=== PATIENT | female | born 1940 | race Caucasian/White ===

== ENCOUNTER 2024-05-06 15:28 | Emergency (ER) | payer OTHER, SELFPAY ==
[2024-05-06 15:32] VITALS: BP 139/62
--- NOTE | 2024-05-06 16:59 | ED.GENMED ---
History of Present Illness
<Awilda Nazario PA-C - Last Filed: 05/06/24 17:15>
General
Chief Complaint: Fall
Source: patient
Exam Limitations: none
Time Seen by Provider: 05/06/24 15:58
Nursing documentation reviewed up to this point in time: agreed with
Travel History
Have you had any contact with someone who has COVID-19?: No
Do you have any symptoms of coronavirus? Fever > 100 degrees, chills, cough, shortness of breath, sore throat, loss of taste or smell, muscle aches, or headache?: No
History of Present Illness
History of Present Illness:
Patient is an 84-year-old female with history atrial fibrillation on Eliquis presenting to the emergency department for evaluation of head injury. Patient states she had a mechanical trip and fall yesterday evening while trying to step onto a curb
around 4 PM. She tripped and fell backwards striking the back of her head on pavement. Patient says this fall was witnessed by many people. She did not lose conscious. She has been asymptomatic since the fall. She specifically denies any
headache, nausea/vomiting, visual changes, confusion, neck pain, back pain, or unsteady gait. Patient denies any numbness/tingling in lower extremities, bowel/bladder incontinence, or groin paresthesia.
Patient did notice a bruise on the back of her head and her daughter took her to her primary care provider today to have it evaluated. Her PCP sent her to the emergency department for CT scan given that the patient is on Eliquis.
Past History
<Awilda Nazario PA-C - Last Filed: 05/06/24 17:15>
Past History
ED Past Medical History: Arrthythmia and Hypothyroidism
ED Past Surgical History: Gynecological
Social History
Living: alone
Review of Systems
<Awilda Nazario PA-C - Last Filed: 05/06/24 17:15>
Review of Systems
Allergies reviewed?: Yes
All Other Systems: ROS reviewed and negative except as documented in HPI and ROS
Phy Exam
<Awilda Nazario PA-C - Last Filed: 05/06/24 17:15>
Physical Exam
Physical Exam:
Vitals: Patient's vital signs are stable. Afebrile
General: Patient is well appearing, in no apparent distress.
Skin: Warm and dry, no rashes or lesions
Head: Normocephalic. Contusion noted to posterior scalp without any obvious bony deformity.
Eyes: Sclera nonicteric. EOMs intact. No nystagmus. Pupils equal round and reactive to light bilaterally.
Throat: Protecting airway
Neck: Normal ROM, no cervical spine tenderness, no meningismus. No midline spinal tenderness. Mild left lumbar paraspinal tenderness
Cardiac: Regular rate and rhythm, no murmurs.
Pulm: Normal respiratory effort, no wheezes, rales, rhonchi heard on exam.
Abdomen: Abdomen soft. No abdominal tenderness. No bruising noted
Extremities: No evidence of cyanosis or edema. Bilateral upper and lower extremities atraumatic and nontender. Full range of motion in all extremities. Great distal pulses. Sensation fully intact
Neuro: AAOx3. CN II-XII intact. No focal neurologic deficits.
Psychiatric: Normal affect.
Course
<Awilda Nazario PA-C - Last Filed: 05/06/24 17:15>
Orders/Labs/Results
Orders:
Orders
05/06/24 15:36
CT Head W/o Iv Contrast Urgent
Comment:
Reason For Exam: fall, head strike yesterday, on eliquis
Vital Signs
Initial and Last Documented VS:
Initial Vital Signs
Temp Pulse Resp BP Pulse Ox
98.3 F 81 18 139/62 97
05/06/24 15:32 05/06/24 15:32 05/06/24 15:32 05/06/24 15:32 05/06/24 15:32
Last Documented Vital Signs
Temp Pulse Resp BP Pulse Ox
98.3 F 81 18 139/62 97
05/06/24 15:32 05/06/24 15:32 05/06/24 15:32 05/06/24 15:32 05/06/24 15:32
<Isai Pinzno DO - Last Filed: 05/06/24 17:11>
Orders/Labs/Results
Orders:
Orders
05/06/24 15:36
CT Head W/o Iv Contrast Urgent
Comment:
Reason For Exam: fall, head strike yesterday, on eliquis
Vital Signs
Initial and Last Documented VS:
Initial Vital Signs
Temp Pulse Resp BP Pulse Ox
98.3 F 81 18 139/62 97
05/06/24 15:32 05/06/24 15:32 05/06/24 15:32 05/06/24 15:32 05/06/24 15:32
Last Documented Vital Signs
Temp Pulse Resp BP Pulse Ox
98.3 F 81 18 139/62 97
05/06/24 15:32 05/06/24 15:32 05/06/24 15:32 05/06/24 15:32 05/06/24 15:32
<Awilda Nazario PA-C - Last Filed: 05/06/24 17:15>
MDM/Problems Addressed
Differential Diagnosis Includes:
Not limited to: Contusion, concussion, fracture, hematoma, intraparenchymal hemorrhage
MDM/Problems Addressed:
84-year-old female on Eliquis presenting for evaluation of head injury following mechanical fall yesterday. Patient sent by PCP for CT scan given anticoagulation. Patient is completely asymptomatic, although did notice a bruise on the back of her
head. Vital signs are stable. Physical exam as above. Patient is very well-appearing, in no apparent distress. Patient is alert and oriented x 3 with no focal neurologic deficits. She does have a small contusion noted to her posterior scalp
without any obvious depression. CT obtained in triage shows no acute intracranial abnormalities. Patient is stable for discharge with return precautions, primary care follow-up. Instructed patient to apply ice, Tylenol as needed for discomfort.
Patient and patient's daughter comfortable with plan. All questions answered.
Chronic conditions affecting care:
Atrial fibrillation on Eliquis
Acute Exacerbation and/or Progression of Chronic Illness:
N/A
<Awilda Nazario PA-C - Last Filed: 05/06/24 17:15>
*Radiology
Radiology exam reviewed: preliminary read by ED provider and radiology read reviewed
*Pulse Oximetry
Patient hypoxic: no
*EKG
Interpreted by ED Provider?: NA
*Auto Painter Helper Interpretation
Rate: Auto Painter Helper- N/A
*Critical Care Note
Total Time (30-74mins, 75-104mins- exclusive of procedures): Not Applicable
ED Attending Note
<Awilda Nazario PA-C - Last Filed: 05/06/24 17:15>
-
Portions of this chart may have been created with voice recognition software.� Occasional wrong word or��sound alike� substitutions may have occurred due to the inherent limitations of voice recognition software.
<Isai Pinzon DO - Last Filed: 05/06/24 17:11>
ED Attending Note
Patient seen and examined by attending physician: Yes
I performed the substantive portion of visit, reviewed & personally made and approve the management plan that is documented in note by myself or ROB.: Yes
ED Attending Note:
I have seen and evaluated the patient with a kibr-ak-opvy encounter. I have spoken to the advance practicer provider and involved in the medical history, the physical exam, medical decision making.
Evaluation and management service: agree unless noted differently below.
Results interpretation: agree unless noted differently below.
Focused HPI: 84-year-old female presenting with a trip and fall yesterday. She fell backwards and hit her head. She was sent in for a CT head
Physical exam: Sitting in bed comfortably. Small posterior scalp hematoma. No neck tenderness. No evidence of other injury on exam
Medical Decision Making: CT head negative. Patient and daughter feel comfortable going home
Discharge Plan
Departure
Patient Disposition: Home (Routine Discharge)
Date of Disposition: 05/06/24
Time of Disposition: 16:50
Patient with high blood pressure during this ER visit?: No
Condition: Good
Covid-19: Not Applicable
Discharge Problem:
Contusion of head
Instructions: Head Injury in Adults (DC), Contusion (DC)
Prescriptions:
No Action
cefdinir 300 MG capsule
300 mg PO Q12 Qty: 10 1RF
Referrals:
Kyra Marina DO [Family Provider] - Follow up in 5-7 days
Activity Restrictions/Additional Instructions:
RETURN TO THE EMERGENCY DEPARTMENT WITH ANY SEVERE HEADACHE, INTRACTABLE VOMITING, CONFUSION, VISION CHANGES, PERSISTENT DIZZINESS/LIGHTHEADEDNESS, WORSENING IN CURRENT SYMPTOMS, OR ANY CONCERNS
-As discussed�you should apply ice to your head. You can take Tylenol as needed for any discomfort.
-You should follow-up with your primary care provider in about a week to ensure symptoms are improving/for further evaluation. Continue to go your medications as prescribed.
-Monitor your symptoms closely return to the emergency department any acute worsening or new symptoms.
Interventions
Interventions:
*Risk Screen - Suicide Last Done: 05/06/24 15:32
*General Assessment Last Done: 05/06/24 15:32
*Nursing Disposition Last Done: 05/06/24 17:01
ED-Musculoskeletal Assessment Last Done: 05/06/24 16:55
ED- Neurological Assessment Last Done: 05/06/24 16:55
ED-Skin Assessment Last Done: 05/06/24 16:55
Discharge Date and Time
Discharge Date/Time: 05/06/24 17:02
Print Language: TAIWANESE
== END 2024-05-06 17:02 | disposition home or self-care (01) ==
LOC: EMR 15:28
PROVIDERS: EMERGENCY PHYSICIAN Student in an Organized Health Care Education/Training Program; FAMILY PHYSICIAN Family Medicine
DX: S00.93XA Contusion of unspecified part of head, initial encounter (principal); W01.0XXA Fall on same level from slipping, tripping and stumbling without subsequent striking against object, initial encounter; I48.91 Unspecified atrial fibrillation; Z79.01 Long term (current) use of anticoagulants
CPT/HCPCS: 99284; 70450

== ENCOUNTER 2025-06-25 21:13 | Inpatient (IN) | payer OTHER, SELFPAY ==
[2025-06-25] VITALS (7 sets, daily range): BP systolic 104–123; BP diastolic 35–85; BMI 29.8; BMI 25.6
[2025-06-25 18:27] LABS: Hematocrit 30.8 % (37.0-47.0); Hemoglobin 9.8 g/dL (12.0-16.0); Mean Corp Hgb Conc. 31.8 g/dL (33.0-37.0); Mean Corpuscular Volume 87.3 fL (81.0-99.0); Nucleated Red Blood Cells % 0 %; Platelet Count 237 10^3/uL (130-400); Red Cell Dist. Width 16.4 % (11.5-14.5)
[2025-06-25 18:48] LABS: ALT (SGPT) 95 U/L (0-35); AST (SGOT) 63 U/L (14-36); Albumin 3.7 g/dl (3.5-5.0); Alkaline Phosphatase 84 U/L (38-126); Blood Urea Nitrogen 26 mg/dl (7-17); Calcium 8.6 mg/dl (8.4-10.2); Carbon Dioxide 36 mmol/L (22-30); Chloride 94 mmol/L (98-107); Estimated Creatinine Clearance 52 ml/min; Glucose 102 mg/dl (70-99); Magnesium 2.3 mg/dl (1.6-2.3); Potassium 4.1 mmol/L (3.5-5.1); Sodium 134 mmol/L (135-145); Total Protein 6.0 g/dl (6.3-8.2); eGFR > 60.00
--- NOTE | 2025-06-25 18:51 | ED.GENMED ---
History of Present Illness
General
Chief Complaint: Heart Rate Problem
Source: patient and family (Daughter)
Exam Limitations: none
Time Seen by Provider: 06/25/25 18:11
Nursing documentation reviewed up to this point in time: agreed with
History of Present Illness
History of Present Illness:
85-year-old female with a past medical history of atrial fibrillation status post Watchman, CHF, GERD, hypothyroidism who presents to the emergency room with daughter for evaluation of shortness of breath. Patient previously has received most of
her care at [facility] including a recent hospitalization reportedly for A-fib with RVR, congestive heart failure as well as pneumonia. During that hospitalization she reportedly had a moderate pleural effusion requiring thoracentesis prior
to discharge. She was discharged home about a week ago has completed her antibiotics for pneumonia. She was discharged on 2 L nasal cannula. She has been on daily Lasix and they also started her on metolazone. Daughter has been checking daily
weights and patient's weight has actually been trending downwards but patient has had increasing shortness of breath as well as increasing swelling in the legs. She has also had daily vital signs and daughter says that heart rate has been erratic
and often times very high in the 110s to 120s. Apparently patient discussed the symptoms with her sap project manager (Dr. Craig) who recommended that she go to the emergency room�daughter and patient are both very dissatisfied with the care at [facility]
and so they decided to come to [facility] instead.
Past History
Past History
ED Past Medical History: Arrthythmia and Hypothyroidism
ED Past Surgical History: Gynecological
Social History
Living: alone
Review of Systems
Review of Systems
All Other Systems: ROS reviewed and negative except as documented in HPI and ROS
Constitutional: Reports fatigue; Denies fever or weight gain
Respiratory: Reports cough and trouble breathing
Cardiac: Reports palpitations; Denies chest pain
ABD/GI: Denies abdominal pain, nausea or vomiting
: Denies flank pain
Musculoskeletal: Reports edema; Denies neck pain or back pain
Neurological: Denies headache
Phy Exam
Physical Exam
Physical Exam:
General: Awake, alert, mild respiratory distress
Head: Normocephalic, atraumatic
Eyes: Conjunctiva normal, sclera anicteric
Throat: Airway intact, handling secretions
Neck: Trachea midline, slight JVD noted
Lungs: Breath sounds diminished at the right lung base, scattered Rales bilaterally; patient has tachypnea, saturating appropriately on 2 L nasal cannula, no retractions
Heart: Tachycardia with irregularly irregular rhythm, faint systolic murmur noted
Abd: Soft, non distended, nontender
Neuro: No gross deficits
Extremities: +2 pitting edema in the legs bilaterally, extremities are warm and well-perfused
Scores
Heart Failure Risk
Heart Failure Risk Score: Yes
History of Stroke or TIA: No
History of intubation for respiratory distress: No
Heart rate on ED arrival >/= 110: Yes
SaO2 <90% on arrival on room air: Yes
HR >/=110 during 3min walk test (or too ill to perform test): Yes
ECG has acute ischemic changes: No
Urea >/=12mmol/L (BUN 33.6mg/dL): No
Serum CO2>/=35mmol/L: Yes
Troponin I or T elevated to ND Level (0.4mg/dL): No
NT-proBNP >/=5,000ng/L (5,000pg/ml): Yes
HF Risk Score: 6
Admission Status: VERY HIGH RISK 55.3% Consider admission to hospital
Heart Score for Chest Pain Patients
STEMI patient?: Not applicable
Withdrawal Assessment of Alcohol
Withdrawal Assessment Completed?: Not applicable
Course
Orders/Labs/Results
Orders:
Orders
06/25/25 18:11
Electrocardiogram (*1) Urgent
Reason for Study: Shortness of Breath
EKG- Treatment ONCE
06/25/25 18:16
Complete Blood Count/With Diff Urgent
Comprehensive Metabolic Panel Urgent
Magnesium Urgent
06/25/25 18:22
CR Chest - 2 Views Urgent
Comment:
Reason For Exam: sob
06/25/25 18:23
Metoprolol [Lopressor] 5 mg IV NOW STA
06/25/25 19:07
NT-proBNP Urgent
Troponin I Urgent
06/25/25 19:21
Furosemide [Lasix] 40 mg IV NOW STA
06/25/25 20:08
Admit/Transfer Patient As Directed
Co-Sign Provider:
Level of Care: Inpatient admission
Assign to:: Telemetry
Physician / Group: Nasir
Diagnosis: A-Fib, CHF
Reason for Telemetry: Arrhythmia
Date to Stop Telemetry: 06/28/25
Time to Stop Telemetry: 11:00
Reason for Hospitalization: A-Fib, CHF
Expected length of stay greater than two midnights?: Yes
ELOS- Estimated Length of Stay in days: 3
I certify the patient meets the requirements for IP care: Yes
06/25/25 20:09
Code Status As Directed
Resuscitation Status: Do not resuscitate
Reached after discussion with pt or family/Healthcare POA: Yes
PRN Pain Medication Management As Directed
May give lesser potent ordered pain med per pt: Yes
preference::
Protocol:: Medication orders for pain may be administered in a
manner that supports deferring to patient preference
when the pt is:
- Requesting an ordered lesser potent pain medication.
Least to most potent pain medications are defined
as: acetaminophen < NSAID < tramadol < opioids
(morphine, oxycodone, hydromorphone).
- Requesting a lesser dose of the same medication IF
ORDERED.
- Requesting a less intrusive route of administration
if both routes are prescribed by the provider (PO <
IV).
06/25/25 20:10
DNR Bracelet Application ONCE
06/25/25 20:18
Urinalysis Reflex To Culture Urgent
Date Specimen was Collected: 06/25/25
Time Specimen was Collected: 20:17
06/28/25 11:00
DC Protocol for Telemetry ONCE
Abnormal Lab Results
06/25/25
18:16
RBC 3.53 L 10^6/uL
(4.20-5.40)
Hgb 9.8 L g/dL
(12.0-16.0)
Hct 30.8 L %
(37.0-47.0)
MCHC 31.8 L g/dL
(33.0-37.0)
RDW 16.4 H %
(11.5-14.5)
MPV 11.0 H fL
(7.4-10.4)
Lymphocytes % 18.3 L %
(20.5-51.1)
Sodium 134 L mmol/L
(135-145)
Chloride 94 L mmol/L
(98-107)
Carbon Dioxide 36 H mmol/L
(22-30)
BUN 26 H mg/dl
(7-17)
Glucose 102 H mg/dl
(70-99)
AST 63 H U/L
(14-36)
ALT 95 H U/L
(0-35)
Total Protein 6.0 L g/dl
(6.3-8.2)
06/25/25 18:16
06/25/25 18:16
Vital Signs
Initial and Last Documented VS:
Initial Vital Signs
Temp Pulse Resp BP Pulse Ox
36.4 C 119 25 123/85 98
06/25/25 18:16 06/25/25 18:16 06/25/25 18:16 06/25/25 18:16 06/25/25 18:16
Last Documented Vital Signs
Temp Pulse Resp BP Pulse Ox
36.4 C 108 22 106/85 98
06/25/25 18:16 06/25/25 19:38 06/25/25 18:30 06/25/25 19:38 06/25/25 18:52
MDM/Problems Addressed
Differential Diagnosis Includes:
Symptomatic A-fib, CHF, recurrent effusion, pneumonia, anemia
MDM/Problems Addressed:
85-year-old female who had a recent complicated hospitalization at [facility] for pneumonia with pleural effusion requiring thoracentesis, CHF and A-fib with RVR presents to the emergency room at [facility] today for evaluation of shortness of breath
and tachycardia. She is tachycardic and tachypneic here, saturating appropriately on 2 L which is her baseline since discharge from the hospital; she is afebrile normotensive. Physical exam as above. Her EKG shows A-fib with RVR heart rate 110s
to 120s here. She has a left bundle branch block�no priors available for comparison. Plan to place an IV check labs including CBC and CMP. Check troponin and proBNP. Will check chest x-ray. IV Lopressor for rate control. Reassess after the
above�anticipate admission.
Labs reviewed: CBC shows mild anemia�new compared to 2021 but no more recent baseline available for comparison. CMP shows marginal transaminitis likely in the setting of CHF/congestion. Chest x-ray reviewed by me shows right pleural effusion with
some pulmonary vascular congestion. Low suspicion for pneumonia without fever or leukocytosis. Suspect effusion related to acute CHF exacerbation in the setting of poorly controlled A-fib with RVR. Heart rate improving after Lopressor we will
continue with rate control. IV Lasix. Admit for continued management. Discussed case with hospitalist.
Chronic conditions affecting care:
Atrial fibrillation, CHF
Acute Exacerbation and/or Progression of Chronic Illness:
Acute A-fib with RVR managed as above
Acute CHF managed as above
*Radiology
Radiology exam reviewed: preliminary read by ED provider and radiology read reviewed
*Pulse Oximetry
SaO2: 98
Nasal Cannula flow liters per minute: 2
Patient hypoxic: no (98% on normal 2 L of oxygen)
*EKG
Interpreted by ED Provider?: Yes
Heart Rate: 116
Rate: tachycardiac
Rhythm: a-fib
Cummings: left axis deviation
Interval: normal interval
QRS Pattern: left bundle branch block
Ischemia: non-specific ST changes
*Critical Care Note
Total Time (30-74mins, 75-104mins- exclusive of procedures): 30
comment:
Critical care statement: A total of 30 minutes of critical care time was provided for this patient. This includes management of unstable vital signs, evaluation of the patient at bedside, frequent reassessment, discussion with
consultants/hospitalist, and review of pertinent medical records. This time was separate from time utilized to perform any aforementioned documented procedures
Data Reviewed
Review of Other/Old Records Reveals: Labs
Source: patient, family and ambulance crew
Patient Management
Discussion with other providers: Hospitalist (Discussed with hospitalist)
Escalation/DeEscalation of care consider admission/obs:
Admission indicated
ED Attending Note
-
Portions of this chart may have been created with voice recognition software.� Occasional wrong word or��sound alike� substitutions may have occurred due to the inherent limitations of voice recognition software.
Discharge Plan
Departure
Patient Disposition: Admit
Date of Disposition: 06/25/25
Time of Disposition: 19:22
Admit to doctor: Nasir
Presentation/result/management discussed w/ accepting MD/DO: Hospitalist
Discharge Problem:
Atrial fibrillation with RVR, CHF exacerbation, Pleural effusion
Prescriptions:
No Action
furosemide [Lasix] 40 mg Tablet
40 mg PO DAILY
trazodone 50 mg Tablet
50 mg PO HSPRN PRN (Reason: sleep)
metoprolol succinate [Toprol XL] 50 mg Tablet Extended Release 24 Hr
50 mg PO DAILY
sertraline 100 mg Tablet
100 mg PO DAILY
Theragen Tablet
1 tab PO DAILY
aspirin 81 mg Tablet,Delayed Release (Dr/Ec)
81 mg PO DAILY
calcium carbonate [Calcium 600] 600 mg calcium (1,500 mg) Tablet
600 mg PO DAILY
pantoprazole [Protonix] 40 mg Tablet,Delayed Release (Dr/Ec)
40 mg PO BID
levothyroxine [Synthroid] 150 mcg Tablet
150 mcg PO DAILY
alum-mag hydroxide-simeth [Maalox] 200-200-20 mg/5 mL Suspension
15 ml PO AC
PreserVision AREDS 2,148 mcg-113 mg-45 mg-17.4mg Tablet
1 tab PO BID
Referrals:
Kyra Marina DO [Family Provider, Family Practice]
Interventions
Interventions:
*Risk Screen - Suicide Last Done: 06/25/25 18:16
*General Assessment Last Done: 06/25/25 18:16
*Neglect/Abuse Screening Last Done: 06/25/25 18:16
*ED- Fall Risk Assessment Last Done: 06/25/25 18:16
*ED COVID-19 Vaccine History Last Done: 06/25/25 18:16
ED- Cardiac Assessment Last Done: 06/25/25 18:16
ED- Pulmonary Assessment Last Done: 06/25/25 18:16
Discharge Date and Time
Print Language: PORTUGUESE
[2025-06-25] MEDS: LOPRESSOR 5 MG IV ×2 (19:02→23:16)
[2025-06-25] MEDS: LASIX 40 MG IV (19:38)
[2025-06-25 19:45] LABS: Troponin I 0.012 ng/ml
--- NOTE | 2025-06-25 20:12 | HPS.HSE ---
Family Physician
-
Family Physician: Kyra Marina, DO
Chief Complaint
-
Weakness
History of Present Illness
Patient is an 85y F with PMH significant for A-Fib and CHF who presents to ED complaining of weakness and fatigue. History obtained from patient and her daughter at the bedside. Patient was hospitalized for 13 days at [facility] and
treated for A-Fib with RVR, CHF, pneumonia and pleural effusion. She underwent cardioversion, diuresis, 5 days of IV abx and R thoracentesis during her stay. Her primary Elevator Starter is Dr. Craig from [facility]. Patient was discharged to home on
Tuesday 06/19. Since her return home she has been very weak. Patient fell twice at home - once striking her head on some furniture. She denies LOC. She denies chest pain. She complains of shortness of breath with activity / exertion. She has been
monitoring her weight at home and took a metolazone yesterday for a weight of 152 (was 150 this AM).
With weakness, falls, LE edema and exertional dyspnea - patient contacted her Elevator Starter and was advised to present to the ED.
Family decided to bring patient to for second opinion.
Medical History
Past Medical History
Past Medical History: Reports Other
Additional Past Medical History:
Persistent / Permanent Atrial Fibrillation
Chronic HF - Unknown Type
Hypothyroidism
GERD
Past Surgical History: Reports Other
Additional Past Surgical History:
Watchman Device
Hysterectomy
Cardioversion
Thoracentesis
Social History
Tobacco: Non-smoker
Alcohol: None
Drug: None
Family History
Family History: Not pertinent
Allergies / Home Medications
Allergies reflects when Allergies were last updated in [facility].
Home Medications with original date entered in [facility]
Allergy/Medication List:
Allergies
Allergy/AdvReac Type Severity Reaction Status Date / Time
No Known Allergies Allergy Verified 05/06/24 15:32
Home Medications
aluminum-mag hydroxide-simethicone 200 mg-200 mg-20 mg/5 mL oral susp 15 ml PO AC 06/25/25
aspirin 81 mg tablet,delayed release 81 mg PO DAILY 06/25/25
calcium carbonate (Calcium 600) 600 mg PO DAILY 06/25/25
furosemide 40 mg tablet (Lasix) 40 mg PO DAILY 06/25/25
levothyroxine 150 mcg tablet (Synthroid) 150 mcg PO DAILY 06/25/25
metoprolol succinate 50 mg tablet,extended release 24 hr (Toprol XL) 50 mg PO DAILY 06/25/25
pantoprazole 40 mg tablet,delayed release (Protonix) 40 mg PO BID 06/25/25
sertraline 100 mg tablet 100 mg PO DAILY 06/25/25
therapeutic multivitamin 1 tab PO DAILY 06/25/25
trazodone 50 mg tablet 50 mg PO HSPRN PRN sleep 06/25/25
vitamins A,C,S-jist-blhvzv 2,148 mcg-113 mg-45 mg-17.4 mg tablet (PreserVision AREDS) 1 tab PO BID 06/25/25
Review of Systems
-
History Source: Patient
A 12 point ROS was completed and negative except as noted: Yes
Constitutional: Reports Weight Gain and Fatigue; Denies Fever or Chills
EENT: Denies Sore Throat
Respiratory: Reports Trouble Breathing; Denies Cough
Cardiac: Denies Chest Pain or Palpitations
Abdomen/GI: Reports Abdominal Pain; Denies Nausea, Vomiting, Diarrhea, Bloody Stools or Black Stools
: Denies Dysuria or Flank Pain
Musculoskeletal: Reports Edema; Denies Joint Pain
Neurological: Denies Dizzy or Headache
Psych: Denies Depression or Anxiety
Physical Exam
Vital Signs
Vital Signs
Temp Pulse Resp BP Pulse Ox
97.6 F 108 22 106/85 98
06/25/25 18:16 06/25/25 19:38 06/25/25 18:30 06/25/25 19:38 06/25/25 18:52
Physical Exam
General: Other (85y F in mild distress due to dyspnea.)
HEENT: Moist mucous membranes, PERRLA and Other (Pos JVD. L occipital hematoma.)
Respiratory: Other (Decreased BS at R base with dullness to percussion. Bibasilar rales.)
Cardiac: S1/S2, Irregular Rhythm and Tachycardia
GI: Soft, Non Distended, Normal Bowel Sounds and Other (Mild lower abdominal tenderness without rebound / guarding. Pos BS.)
Musculoskeletal: No Clubbing, No Cyanosis and Other (2+ pitting edema b/l LEs.)
Skin: Other (Ecchymosis R lower leg.)
Neuro: AO x 3 and Nonfocal/grossly intact
Laboratory Results
-
06/25/25 18:16
06/25/25 18:16
Laboratory Results
Total Bilirubin 0.9 mg/dl (0.2-1.3) 06/25/25 18:16
AST 63 U/L (14-36) H 06/25/25 18:16
ALT 95 U/L (0-35) H 06/25/25 18:16
Alkaline Phosphatase 84 U/L (38-126) 06/25/25 18:16
Troponin I 0.012 ng/ml 06/25/25 19:07
Impression/Plan
-
A/P: Patient is an 85y F with PMH significant for A-Fib, CHF and hypothyroidism who presents to ED complaining of weakness and exertional dyspnea.
Atrial Fibrillation with Rapid Ventricular Response
- Admit for further evaluation and treatment.
- ? type of A-Fib.
- s/p cardioversion during recent [facility] hospitalization - but had recurrent A-Fib even prior to discharge.
- Has Watchman in place for stroke risk reduction.
- Was on amiodarone which was discontinued at [facility].
- IV Lopressor given in the ED. Continue q6 with holding parameters for now.
- Obtain records from recent hospitalization.
- Local Cardiology evaluation for additional recommendations.
Acute on Chronic HF - Unknown Type
Abnormal LFTs
- LE edema, DEVI and elevated ProBNP on initial assessment. Pos rales and pleural effusion.
- IV Lasix BID for now and follow I/Os, daily weights, etc.
- Control A-Fib as noted above - ? benefit to rhythm-control strategy if possible.
- Obtain recent records from [facility] for review - update Echo if not done recently (which it likely was).
- Suspect that mildly abnormal LFTs are due to passive hepatic congestion.
- Follow for clinical improvement.
Pleural Effusion
- R pleural effusion by exam and imaging. s/p thoracentesis at [facility] last week.
- Obtain records for fluid analysis, culture data, etc.
- Diuresis as noted above.
- Consider repeat thoracentesis if needed.
- Was also treated for pneumonia during recent hospitalization, but no evidence of infectious process at present.
Normocytic Anemia
GERD
- Hgb = 9.8. Prior baseline 12 several years ago. No noted blood loss.
- Recent complaint of lower abdominal discomfort - unclear etiology.
- Follow H&H for changes.
- Check stool for blood, iron studies, etc.
- Continue BID PPI for now.
Hypothyroidism
- Continue current T4 replacement for now.
- Update TFTs and adjust dose if needed.
Anxiety / Depression / Insomnia
- Stable. Continue sertraline and PRN trazodone.
DVT Prophylaxis: Lovenox
Code Status: DNR
[2025-06-25 21:05] LABS: Urine Character Clear (Clear)
[2025-06-25 22:33] LABS: Iron 38 ug/dl (37-170)
[2025-06-25 22:42] LABS: Total Iron Binding Capacity 393 ug/dl (265-497)
[2025-06-25 22:45] LABS: Troponin I 0.012 ng/ml
[2025-06-26] VITALS (12 sets, daily range): BP systolic 91–133; BP diastolic 62–90; BMI 25.3
[2025-06-26 00:24] LABS: Ferritin 46.9 ng/ml (11.1-264.0)
[2025-06-26 03:48] LABS: Hematocrit 30.4 % (37.0-47.0); Hemoglobin 9.6 g/dL (12.0-16.0); Mean Corp Hgb Conc. 31.6 g/dL (33.0-37.0); Mean Corpuscular Volume 86.6 fL (81.0-99.0); Platelet Count 213 10^3/uL (130-400); Red Cell Dist. Width 16.3 % (11.5-14.5)
[2025-06-26] MEDS: LASIX 40 MG IV ×3 (04:08→16:41)
[2025-06-26 04:16] LABS: Blood Urea Nitrogen 26 mg/dl (7-17); Calcium 8.5 mg/dl (8.4-10.2); Carbon Dioxide 38 mmol/L (22-30); Chloride 95 mmol/L (98-107); Estimated Creatinine Clearance 44 ml/min; Glucose 106 mg/dl (70-99); HDL Cholesterol 40 mg/dl; LDL Cholesterol, Calculated 64 mg/dl; Potassium 3.7 mmol/L (3.5-5.1); Sodium 135 mmol/L (135-145); Very Low Density Lipoprotein 21 mg/dl (0-30); eGFR > 60.00
[2025-06-26 04:28] LABS: Troponin I 0.013 ng/ml
[2025-06-26] MEDS: LOPRESSOR 5 MG IV (05:37)
[2025-06-26] MEDS: SYNTHROID 150 MCG PO (05:37)
[2025-06-26] MEDS: PROTONIX 40 MG PO ×2 (07:20→19:46)
[2025-06-26] MEDS: ASPIR LOW (ENTERIC COATED) 81 MG PO (07:20)
[2025-06-26] MEDS: ZOLOFT 100 MG PO (07:20)
[2025-06-26] MEDS: FLUSH (NSS) 1 FLUSH IV (07:20)
--- NOTE | 2025-06-26 09:20 | W.PN.HOSP.TC ---
Today's Communication/Plan
-
see PN
Unable to reach daughter over the phone
Assessment / Plan
Assessment / Plan
85yo F with PMHx of Afib s/p Watchman due to intorrenace of anticoagulation, CHF, hypothyroidism, GERD, insomnia recent admission to [facility] with abdominal pain, later developed Afib RVR, had CV, had thoracentesis for R pleural
effusionthen developed pneumonia and finally was d/c 1 week before admission to . Patient was haing recurrence of Afib with RVR and her carpet cutter advised her to come to ED. Patient was discharged on 2L home O2 from her previous hospitalization
A/P:
#Subacute respiratory insufficiency
#Afib with RVR
#acute on chronic CHF, unspecified
#R pleural effusion with atelectasis
s/p watchman
Lasix, daily weight, follow electrolytes, Cr
Cardiology consult
Echo and telemetry
Acapella
COnt O2
Obtain records from [place] to eval pleural fluid analysis, imaging andafib mgmt
#Constipation
laxatives
#Transaminitis
minimal
2/2 CHF?
CPK WNL
Check hepatitis panel
#Hypothyroidism
Elevated TSH with also high FT4 - repeat TFT in 2-3 days, then in 3-4 weeks to determine if Synthroid has to be decreased (due to concern for oversupplementation even with elevated TSH, but with RVR) - as discussed with business objects analyst
#Anxiety
#ASCVD
#Insomnia
Cont home meds
DVT ppx lovenox
DNR/DNI
I have spent at least 59min reviewing chart, test results, communicating with consultnats and direct patient care
Anticipated Discharge: > 48 hours
Subjective/Interval History
-
Date of Service: June 26, 2025
Objective Data
-
Labs:
Laboratory Results
06/26/25
03:39
WBC 5.5
Hgb 9.6 L
Hct 30.4 L
Plt Count 213
Sodium 135
Potassium 3.7
Chloride 95 L
Carbon Dioxide 38 H
BUN 26 H
Creatinine 0.8
Glucose 106 H
Calcium 8.5
Vital Signs:
Vital Signs
Temp Pulse Resp BP Pulse Ox
97.9 F 118 18 123/82 95
06/26/25 07:10 06/26/25 07:20 06/26/25 07:10 06/26/25 07:20 06/26/25 07:25
I&O
06/25/25 06/26/25 06/27/25
06:59 06:59 06:59
Output Total 625 / 625
Balance -625 / -625
Review of Systems
-
History Source: Patient
All other systems: Reviewed and negative
Constitutional: Reports Fatigue
Cardiac: Reports Palpitations
Physical Exam
-
General: No Apparent Distress
HEENT: Normocephalic
Cardiac: Irregular Rhythm and Tachycardic
GI: Soft, Nontender and Nondistended
Musculoskeletal: No Clubbing, No Cyanosis, Edema, Right Lower Extrem and Edema, Left Lower Extrem
Neuro: Awake, Alert, Oriented and AO x 3
Psych: Calm
[2025-06-26 09:41] LABS: Glycohemoglobin (HgbA1c) 5.9 % (4.0-5.6)
[2025-06-26] MEDS: TOPROL XL 50 MG PO (09:53)
--- NOTE | 2025-06-26 09:59 | CON.CAR ---
Addendum entered and electronically signed by Mamie Camacho MD 06/26/25 14:27:
I saw and examined the patient.
The Welt Slasher's note was reviewed and I agree with the note.
Comment:
Patient was on the commode. Lower extremity edema, crackles and increased heart rates in atrial fibrillation noted. Her daughter is at the bedside.
She was recently discharged from [facility] for similar admission with atrial fibrillation and heart failure. She also underwent a thoracentesis by report at that time and records reviewed. Amiodarone was discontinued given she was having some
nausea and abd symptoms during hospital admission that may or may not have been attributed to amiodarone.
She now presents with heart failure decompensation with newly reduced left ventricular ejection fraction in the setting of rapid atrial fibrillation. She had a recent fall last Sunday and continues to heal. She does fall. She has a watchman in
place and is not on oral anticoagulation.
I did have a long discussion with the patient and her daughter at the bedside. My physician podiatrist assistant also discussed on the phone with her other daughter plans.
Plan at this time:
Heart failure with newly reduced left ventricular ejection fraction with acute volume overload (previously heart failure with preserved ejection fraction)
- Continue IV diuretic
- Rate control atrial fibrillation , Toprol-XL dose increased
- Look into the cost of SGLT2 inhibitor
- Recently had [place] losartan discontinued because of hypotension and hyperkalemia continue to reassess. Given hyperkalemia at this time would avoid MRA. Continue to reassess.
Paroxysmal now persistent atrial fibrillation with rapid rates (recent cardioversion and recurred shortly thereafter)
- Previously was on amiodarone and there was a question of abdominal symptoms but she is willing to try again. Currently LFTs are mildly elevated.
- Reassess LFTs after diuresis. If improved would start amiodarone with an eye towards future rhythm control. If not could consider dofetilide.
- Watchman (history of GI bleeding) in place however if plan is for cardioversion in the future would need short-term anticoagulation given risk. Would want to wait until healed from recent fall.
Hypothyroidism
- Will need to be followed closely if amiodarone is resumed. May need increased dose of thyroid medication.
Chronic left bundle branch block noted
Original Note:
Consultation
Consultation Request
Date/Time Consultation Performed: 06/26/25
Requesting Provider: Dr. Best
Performing Provider: Juhi Buck PA-C for Dr. Mamie Camacho
Reason for Consultation: afib, CHF
Medical History
-
Chief Complaint: SOB
History of Present Illness:
Patient is an 85 yo F with PMH of paroxysmal atrial fibrillation also with history of GI bleeding, falls, and history of headaches on anticoagulation status post Watchman with admission to [facility] 06/07 - 06/19/2025. She had
initially presented to [facility] with epigastric pain and hematuria. Then was found to be in rapid A-fib. She underwent cardioversion which was initially successful, however then recurred. Amio was stopped during this admission due to 'concerns
for long-term toxicity', But further details of this unclear. She was also diuresed for heart failure and underwent right thoracentesis which was reportedly transudative. She was also treated for pneumonia. She was discharged to home on
supplemental oxygen. Family reports she had been doing poorly since discharge and felt she was 'discharged too early'. On Friday 06/22, she tripped over her oxygen tubing and fell and has right knee bruising. She has been corresponding with her
manager of sales and outpatient diuretic dosing has been escalating without significant improvement in symptoms. She was then referred back to the ER and family brought her to [place], as this is where they will come for their care. Noted to have
proBNP of 13,200. In rapid atrial fibrillation on arrival.
PMH:
Admission to [facility] 05/2025 for CHF s/p R thora (transudative), afib s/p CV with recurrence
Paroxysmal atrial fibrillation
Prior amiodarone use, stopped 05/2025 admission due to 'concerns for fci toxicity'
s/p Watchman 07/2024
History of GI bleeding
Chronic HFpEF
HTN
Chronic LBBB
Hypothyroidism
GERD
Past Medical History
Past Medical History: Other (in HPI)
Social History
Tobacco: Non-Smoker
Alcohol: None
Living: Alone
Employment: Retired
Family History
Family History: Reviewed & Not Pertinent
Allergies / Home Medications
Allergy/AdvReac Type Severity Reaction Status Date / Time
No Known Allergies Allergy Verified 05/06/24 15:32
�Medication �Instructions �Recorded �Confirmed �Type
aluminum-mag hydroxide-simethicone 15 ml PO AC Gastrointestinal Issue 06/25/25 06/25/25 History
200 mg-200 mg-20 mg/5 mL oral susp
aspirin 81 mg tablet,delayed 81 mg PO DAILY Blood Clot 06/25/25 06/25/25 History
release Prevention/Tx
calcium carbonate (Calcium 600) 600 mg PO DAILY Supplement 06/25/25 06/25/25 History
furosemide 40 mg tablet (Lasix) 40 mg PO DAILY Fluid 06/25/25 06/25/25 History
Retention/Swelling
levothyroxine 150 mcg tablet 150 mcg PO DAILY Thyroid 06/25/25 06/25/25 History
(Synthroid)
metoprolol succinate 50 mg 50 mg PO DAILY Blood Pressure 06/25/25 06/25/25 History
tablet,extended release 24 hr
(Toprol XL)
pantoprazole 40 mg tablet,delayed 40 mg PO BID Gastrointestinal Issue 06/25/25 06/25/25 History
release (Protonix)
sertraline 100 mg tablet 100 mg PO DAILY Depression 06/25/25 06/25/25 History
therapeutic multivitamin 1 tab PO DAILY Supplement 06/25/25 06/25/25 History
trazodone 50 mg tablet 50 mg PO HSPRN PRN sleep 06/25/25 06/25/25 History
vitamins A,C,U-unhc-dkysxe 2,148 1 tab PO BID Supplement 06/25/25 06/25/25 History
mcg-113 mg-45 mg-17.4 mg tablet
(PreserVision AREDS)
Review of Systems
-
History Source: Patient and Family
All other systems: Negative unless noted
Physical Exam
Vital Signs
Temp Pulse Resp BP Pulse Ox
97.9 F 113 18 106/76 95
06/26/25 07:10 06/26/25 09:53 06/26/25 07:10 06/26/25 09:53 06/26/25 07:25
Lab Results
06/26/25 03:39
06/26/25 03:39
Troponin I Cancelled 06/26/25 09:47
Alg-F-Qgayasebtig Pept 36315 pg/ml 06/25/25 19:07
Physical Exam
General: Other (frail female, on supp O2, some conversational dyspnea)
HEENT: Normocephalic, Anicteric and Moist Mucous Membranes
Respiratory: Crackles
Cardiac: S1/S2 and Irregular Rhythm
GI: Soft, Non Tender, Non Distended and Normal Bowel Sounds
Musculoskeletal: No Clubbing, No Cyanosis and No Edema
Skin: Warm, Dry and Other (R knee with ecchymoses)
Neuro: AO x 3
Impression / Plan
-
Primary Flag Car Driver: Dr. Craig of [facility] however patient's daughter discussing transitioning care to [facility]
Assessment:
Presentation with SOB
Acute HFrEF
Cardiomyopathy, new, EF 25-30%
Paroxysmal atrial fibrillation, now with RVR
Fall 06/22/25 with R knee ecchymoses
Admission to [facility] 05/2025 for CHF s/p R thora (transudative), afib s/p CV with recurrence
Prior amiodarone use, stopped 05/2025 admission due to 'concerns for terminologist toxicity'
s/p Watchman 07/2024
History of GI bleeding
Chronic HFpEF
HTN
Chronic LBBB
Hypothyroidism, with elevated TFTs
GERD
Anemia
Mild transaminitis
DNR code status
ECHO 06/26/25: EF 26%, mild to moderate LVH, aortic sclerosis, moderate to severe MR, mild TR, PAP 26 mmHg, small pericardial effusion seen
Plan:
-Patient with recent admission to [facility], now presents to [facility] due to worsening SOB, fatigue since discharge.
-in rapid afib on review of tele. suspect is not tolerating well. increase po toprol to 50mg BID. will consider restarting amiodarone vs trialing on tikosyn for rhythm control. will need to follow LFTs/TFTs if plan for amio.
-she is s/p watchman. she is on asa only as OP. she has history of GI bleeding, falls, and headaches on OAC in past. she had a fall 06/22/25 with R knee ecchymoses. she had also initially presented to [facility] due to hematuria, UA 06/25 with no occult
blood in urine sample. hgb 9.6
-echo this admission with EF 26%, new. prior echo from [facility] with EF 60% and mod MR per notes. GDMT of CM as BP allows. she had previously been on losartan however this [facility] due to hyperkalemia and hypotension. results
discussed with patient's daughter Becca via telephone today
-proBNP 17827. continue diuresis with IV lasix 40mg BID. was on po lasix 40mg daily prior to admission, however she was not on daily diuretic prior to 05/2025 admission to [facility]
-obtained and reviewed records from [facility] admission and cardiology office notes
-will move patient to IVU
-wean supp O2 as able
-may need to consider for SHERRILL/CV however would attempt to load with AAD prior to increase chance of success. of note, patient was cardioverted during [facility] admission with initial success however then reverted as amio was stopped.
-eventual consideration for ablation candidacy
-she was living alone prior to admission
-d/w patient's daughter via telephone for 18:53
-d/w hospitalist via TT
Data Reviewed
-
EKG: Tracing Personally Visualized and interpreted
Radiology: Report Reviewed by me
Medical Tests (Nuc Med, Echo etc): Report Reviewed by me, Discussed with Physician and Discussed with Family
Labs: Labs Reviewed by me
Old Records: Requested and Reviewed
--- NOTE | 2025-06-26 13:51 | TRANSFER ---
Order received to tx pt to IVU. Report given to ALBINO Woodard. Pt remains Afib on manager life insurance. HR 90s- 110s. Pt denies pain. Daughter at bedside. Plan of care ongoing.
[2025-06-26 14:10] LABS: Hepatitis B Surface Antigen Negative (Negative)
[2025-06-26 14:29] LABS: Hepatitis C Antibody Negative (Negative)
--- NOTE | 2025-06-26 15:01 | CM ---
Pricing on Farxiga 10mg through the [employer] [facility] is a Tier 4 which is 45% of cost.
Jardiance is a Tier 3 which is $47 for a 30 days.
I will place a free 30 day coupon in the patient red discharge folder.
--- NOTE | 2025-06-26 15:55 | CM ---
Chart reviewed. Patient was recently discharged from [facility] with [facility]. Patient's daughter has been staying with the patient, but she lives alone in a apartment, 3rd floor, elevator access, ambulates with a RW, wears Home O2 but
doesn't know the name of the supplier. Patient's daughter said her mom is very weak and she thinks she will need rehab. PT evaluation was ordered. Plan is for the patient to return home with [facility] vs Rehab. CM to assess
--- NOTE | 2025-06-26 16:09 | PTCARENOTE ---
Received pt from the 4th floor. VSS. Discussed plan of care w/ pt and pt's daughter. Will monitor.
[2025-06-26] MEDS: LOVENOX 40 MG SC (17:54)
[2025-06-26] MEDS: TOPROL XL PO (21:35)
--- NOTE | 2025-06-26 21:37 | PTCARENOTE ---
Received pt at change of shift OOB in chair. Afib on tele, HR 100. pt denies any CP or SOB. Satting 98% on 2L. BP 95/62, rechecked an hour later and is 100/72. Sonya Bowens NP made aware. Instructed RN to hold Toprol Xl. Fall risk precautions
maintained, bed alarm on and audible. Educated pt to call RN for assistance ambulating. Call matthews within reach.
[2025-06-27] VITALS (11 sets, daily range): BP systolic 71–124; BP diastolic 60–90; PULSE 96; O2SAT 95; BMI 24.7
[2025-06-27 04:47] LABS: Hematocrit 30.3 % (37.0-47.0); Hemoglobin 9.6 g/dL (12.0-16.0); Mean Corp Hgb Conc. 31.7 g/dL (33.0-37.0); Mean Corpuscular Volume 87.3 fL (81.0-99.0); Nucleated Red Blood Cells % 0 %; Platelet Count 201 10^3/uL (130-400); Red Cell Dist. Width 16.0 % (11.5-14.5)
[2025-06-27 05:07] LABS: ALT (SGPT) 91 U/L (0-35); AST (SGOT) 61 U/L (14-36); Albumin 3.4 g/dl (3.5-5.0); Alkaline Phosphatase 72 U/L (38-126); Blood Urea Nitrogen 25 mg/dl (7-17); Calcium 8.4 mg/dl (8.4-10.2); Carbon Dioxide 38 mmol/L (22-30); Chloride 94 mmol/L (98-107); Estimated Creatinine Clearance 44 ml/min; Glucose 97 mg/dl (70-99); Magnesium 2.1 mg/dl (1.6-2.3); Potassium 3.8 mmol/L (3.5-5.1); Sodium 135 mmol/L (135-145); Total Protein 5.7 g/dl (6.3-8.2); eGFR > 60.00
[2025-06-27] MEDS: SYNTHROID 150 MCG PO (06:35)
[2025-06-27] MEDS: PROTONIX 40 MG PO ×2 (09:41→19:40)
[2025-06-27] MEDS: ZOLOFT 100 MG PO (09:41)
[2025-06-27] MEDS: ASPIR LOW (ENTERIC COATED) 81 MG PO (09:41)
[2025-06-27] MEDS: LASIX IV (09:42)
[2025-06-27] MEDS: TOPROL XL 50 MG PO ×2 (09:45→19:40)
--- NOTE | 2025-06-27 10:09 | W.PN.CARDCBS ---
Today's Communication / Plan
-
Digoxin for heart rate control
Continue Toprol-XL
Guideline directed medical therapy for heart failure with reduced ejection fraction as blood pressures tolerates.
Start Jardiance on discharge.
Discussed with patient and her family resynchronization pacemaker with staged AVJ ablation for heart rate control of atrial fibrillation which is likely the etiology of newly reduced left ventricular ejection fraction.
Impression / Plan
-
Primary Bullet Slugs Inspector: Dr. Craig of [facility] however patient's daughter discussing transitioning care to [facility]
Assessment:
Presentation with SOB
Acute HFrEF
Cardiomyopathy, new, EF 25-30%
Paroxysmal atrial fibrillation, now with RVR
Fall 06/22/25 with R knee ecchymoses
Admission to [facility] 05/2025 for CHF s/p R thora (transudative), afib s/p CV with recurrence
Prior amiodarone use, stopped 05/2025 admission due to 'concerns for penitentiary toxicity'
s/p Watchman 07/2024
History of GI bleeding
Chronic HFpEF
HTN
Chronic LBBB
Hypothyroidism, with elevated TFTs
GERD
Anemia
Mild transaminitis
DNR code status
ECHO 06/26/25: EF 26%, mild to moderate LVH, aortic sclerosis, moderate to severe MR, mild TR, PAP 26 mmHg, small pericardial effusion seen
Plan:
Patient with recent admission to [facility], now presents to [facility] due to worsening SOB, fatigue since discharge. Heart failure with newly reduced ejection fraction in the setting of rapid atrial fibrillation. She diuresed 5 pounds
overnight. Blood pressure is on the low side. She is feeling a bit better. She remains on oxygen. She remains in rapid atrial fibrillation.
Plan at this time:
Heart failure with newly reduced left ventricular ejection fraction (proBNP 13,200) with acute volume overload (previously heart failure with preserved ejection fraction)
- She is diuresed well. Blood pressure is on the low side. I will hold diuretic until the a.m. and then reassess.
- Rate control atrial fibrillation plan as noted below. Currently on Toprol-XL. Being held intermittently because of low blood pressure.
-Will start Jardiance at discharge.
- Recently had Abington losartan discontinued because of hypotension and hyperkalemia continue to reassess. Given prior hyperkalemia (potassium stable here) and current low blood pressure at this time would avoid MRA. Continue to reassess. Given
low blood pressure have not started Entresto.
- She may undergo AVJ ablation and will require pacemaker. Given low left ventricular ejection fraction and very wide left bundle branch block with [place] Heart Association class III symptomatology and sick sinus syndrome resynchronization
pacemaker is indicated.
- Wean oxygen as tolerates.
Mitral regurgitation
- Moderate to severe on echocardiogram. Follow. May improve with resynchronization.
Paroxysmal now persistent atrial fibrillation with rapid rates (recent cardioversion and recurred shortly thereafter)
- Previously was on amiodarone and there was a question of abdominal symptoms. Despite diuresis LFTs remain persistently elevated and thyroid is abnormal. Will hold on amiodarone use at this time and continue to reassess. Of note on today's EKG
QT is also mildly prolonged.
-Given prolonged QT interval and heart failure with reduced ejection fraction antiarrhythmic medication choices are limited. Avoiding amiodarone for now. Dofetilide not acceptable given QT prolongation.
- Have discussed at great length with electrophysiology. For now we will rate control. Continue Toprol-XL but limited because of blood pressure. Will start temporarily digoxin give 0.25 IV now and then 0.125 mg daily.
- Best option for this patient is likely resynchronization pacemaker with staged AVJ ablation. Will discussed with patient and her daughters to see if this is an acceptable strategy when her daughters arrive today.
- Watchman (history of GI bleeding) in place however if plan is for cardioversion in the future would need short-term anticoagulation given risk. Would want to wait until healed from recent fall before this would be attempted. She is unlikely to
do well with rhythm control or ablation given comorbidities and very enlarged atrium.
Hypothyroidism
- May need increased dose of thyroid medication. Defer to primary service.
Chronic left bundle branch block noted
I spent 40 minutes [id number] and [id number] time in discussion, review of records, review of testing, discussion with electrophysiology and making plans regarding this patient's complex history.
Progress Note - Bullet Slugs Inspector
Subjective
Date of Service: June 27, 2025
She is feeling a bit better today. She is sitting up in the chair.
Objective
Labs:
06/27/25 03:59
06/27/25 03:59
Labs
Hgb 9.6 g/dL (12.0-16.0) L 06/27/25 03:59
Hct 30.3 % (37.0-47.0) L 06/27/25 03:59
Plt Count 201 10^3/uL (130-400) 06/27/25 03:59
Sodium 135 mmol/L (135-145) 06/27/25 03:59
Potassium 3.8 mmol/L (3.5-5.1) 06/27/25 03:59
BUN 25 mg/dl (7-17) H 06/27/25 03:59
Creatinine 0.8 mg/dL (0.6-1.0) 06/27/25 03:59
Glucose 97 mg/dl (70-99) 06/27/25 03:59
Troponins
06/25/25 06/25/25 06/25/25
18:11 19:07 22:04
Troponin I Cancelled 0.012 0.012
06/26/25 06/26/25
03:39 09:47
Troponin I 0.013 Cancelled
Vital Signs and I&O:
Vital Signs
Temp Pulse Resp BP Pulse Ox
97.7 F 90 20 96/69 98
06/27/25 08:08 06/27/25 09:45 06/27/25 08:08 06/27/25 09:45 06/27/25 08:08
Vital Signs
Temp Pulse Resp BP Pulse Ox
97.7 F 90 20 96/69 98
06/27/25 08:08 06/27/25 09:45 06/27/25 08:08 06/27/25 09:45 06/27/25 08:08
Intake & Output
06/25/25 06/26/25 06/27/25 06/28/25
06:59 06:59 06:59 06:59
Intake Total 240 / 240
Output Total 625 / 625
Balance -625 / -625 240 / 240
Physical Exam
Physical Exam
General: Well developed, well nourished in NAD.
Heart: Rapid/irregular
Lungs: Crackles at the bases bilateral
Abdomen: Normal bowel sounds, soft, non-tender, non-distended.
Extremities: No clubbing, cyanosis and trace edema bilaterally.
Neuro: Grossly nonfocal, awake, alert and oriented x3.
[2025-06-27] MEDS: LANOXIN 250 MCG IV (10:34)
--- NOTE | 2025-06-27 12:45 | W.PN.HOSP.TC ---
Today's Communication/Plan
-
weight approprietly decreasing , con diuresis
Assessment / Plan
Assessment / Plan
85yo F with PMHx of Afib s/p Watchman due to intolerance of anticoagulation, CHF, hypothyroidism, GERD, insomnia recent admission to [facility] with abdominal pain, later developed Afib RVR, had CV, had thoracentesis for R pleural effusion
then developed pneumonia and finally was d/c 1 week before admission to . Patient was haing recurrence of Afib with RVR and her airplane pilot chief advised her to come to ED. Patient was discharged on 2L home O2 from her previous hospitalization
A/P:
#Subacute respiratory insufficiency
#Afib with RVR
#acute on chronic CHF, unspecified
#R pleural effusion with atelectasis
s/p watchman
Lasix, daily weight, follow electrolytes, Cr
Cardiology consult
Echo with 26% EF, moderate-severe MR
Acapella
COnt O2
Obtain records from [place] to al pleural fluid analysis, imaging and afib mgmt
GDMT upon d/c with ACEi, Aldactone, Entresto, Jardiance as tolerated, however might be limited due to low BP
resynchronization pacemaker with staged AVJ ablation for heart rate control of atrial fibrillation is indicated as per cardiology. Pending decision with family and patient
#Constipation
laxatives
#Transaminitis
minimal, not increasing
2/2 CHF?, check US RUQ with portal Doppler
CPK WNL
hepatitis panel neg
#Hypothyroidism
Elevated TSH with also high FT4 - repeat TFT in 2-3 days, then in 3-4 weeks to determine if Synthroid has to be decreased (due to concern for oversupplementation even with elevated TSH, but with RVR) - as discussed with commercial sheet metal foreman
#Anxiety
#ASCVD
#Insomnia
Cont home meds
DVT ppx lovenox
DNR/DNI
I have spent at least 36min reviewing chart, test results, communicating with consultnats and direct patient care
Anticipated Discharge: > 48 hours
Subjective/Interval History
-
Date of Service: June 27, 2025
Objective Data
-
Labs:
Laboratory Results
06/27/25
03:59
WBC 4.6 L
Hgb 9.6 L
Hct 30.3 L
Plt Count 201
Sodium 135
Potassium 3.8
Chloride 94 L
Carbon Dioxide 38 H
BUN 25 H
Creatinine 0.8
Glucose 97
Calcium 8.4
Total Bilirubin 1.1
AST 61 H
ALT 91 H
Alkaline Phosphatase 72
Vital Signs:
Vital Signs
Temp Pulse Resp BP Pulse Ox
97.7 F 83 20 110/69 98
06/27/25 11:34 06/27/25 11:32 06/27/25 11:34 06/27/25 11:32 06/27/25 11:34
I&O
06/26/25 06/27/25 06/28/25
06:59 06:59 06:59
Intake Total 240 / 240
Output Total 625 / 625
Balance -625 / -625 240 / 240
Physical Exam
-
General: No Apparent Distress
Respiratory: Clear to Auscultation
GI: Soft, Nontender and Nondistended
Musculoskeletal: No Clubbing, No Cyanosis, Edema, Right Lower Extrem and Edema, Left Lower Extrem
Neuro: Awake, Alert, Oriented and AO x 3
Psych: Calm
[2025-06-27] MEDS: LOVENOX 40 MG SC (16:57)
[2025-06-27] MEDS: LANOXIN 125 MCG PO (16:57)
--- NOTE | 2025-06-28 03:37 | PTCARENOTE ---
Pt. remains in A-fib overnight, rate 70's-80's. SBP's stable, 120's. Pt. sleeping most of night. No complaints when awake.
[2025-06-28 03:44] VITALS: BP 113/66
[2025-06-28 04:12] LABS: Hematocrit 30.1 % (37.0-47.0); Hemoglobin 9.4 g/dL (12.0-16.0); Mean Corp Hgb Conc. 31.2 g/dL (33.0-37.0); Mean Corpuscular Volume 86.5 fL (81.0-99.0); Nucleated Red Blood Cells % 0 %; Platelet Count 193 10^3/uL (130-400); Red Cell Dist. Width 16.1 % (11.5-14.5)
[2025-06-28 04:33] LABS: ALT (SGPT) 78 U/L (0-35); AST (SGOT) 49 U/L (14-36); Albumin 3.2 g/dl (3.5-5.0); Alkaline Phosphatase 80 U/L (38-126); Blood Urea Nitrogen 25 mg/dl (7-17); Calcium 8.4 mg/dl (8.4-10.2); Carbon Dioxide 38 mmol/L (22-30); Chloride 96 mmol/L (98-107); Estimated Creatinine Clearance 44 ml/min; Glucose 89 mg/dl (70-99); Magnesium 2.2 mg/dl (1.6-2.3); Potassium 3.6 mmol/L (3.5-5.1); Sodium 135 mmol/L (135-145); Total Protein 5.3 g/dl (6.3-8.2); eGFR > 60.00
[2025-06-28 06:00] VITALS: BMI 24.8
[2025-06-28] MEDS: SYNTHROID 150 MCG PO (06:07)
[2025-06-28 06:44] LABS: Reticulocyte Count 2.2 % (0.4-2.8)
[2025-06-28 07:07] LABS: Iron 41 ug/dl (37-170); LDH 236 U/L (120-246)
[2025-06-28 07:16] LABS: Total Iron Binding Capacity 363 ug/dl (265-497)
[2025-06-28 07:22] VITALS: BP 123/83
[2025-06-28] MEDS: ASPIR LOW (ENTERIC COATED) 81 MG PO (07:50)
[2025-06-28] MEDS: ZOLOFT 100 MG PO (07:50)
[2025-06-28] MEDS: TOPROL XL 50 MG PO ×2 (07:50→20:01)
[2025-06-28] MEDS: PROTONIX 40 MG PO ×2 (07:50→20:01)
--- NOTE | 2025-06-28 09:13 | W.PN.HOSP.TC ---
Today's Communication/Plan
-
repeat chest XR
recheck TFT in AM
mgmt as per card
Assessment / Plan
Assessment / Plan
85yo F with PMHx of Afib s/p Watchman due to intolerance of anticoagulation, CHF, hypothyroidism, GERD, insomnia recent admission to [facility] with abdominal pain, later developed Afib RVR, had CV, had thoracentesis for R pleural effusion
then developed pneumonia and finally was d/c 1 week before admission to . Patient was haing recurrence of Afib with RVR and her hand candy dipper advised her to come to ED. Patient was discharged on 2L home O2 from her previous hospitalization
A/P:
#Subacute respiratory insufficiency
#Afib with RVR
#acute on chronic CHF, unspecified
#R pleural effusion with atelectasis
s/p watchman
Lasix, daily weight, follow electrolytes, Cr
Cardiology consult: started digoxin
Echo with 26% EF, moderate-severe MR
Acapella
COnt O2
Obtain records from [place] to al pleural fluid analysis, imaging and afib mgmt
GDMT upon d/c with ACEi, Aldactone, Entresto, Jardiance as tolerated, however might be limited due to low BP
resynchronization pacemaker with staged AVJ ablation for heart rate control of atrial fibrillation is indicated as per cardiology. Pending decision with family and patient
#Constipation
laxatives
#Transaminitis
minimal, improving on better HR control, suspect hepatic congestion
2/2 CHF?, check US RUQ with portal Doppler
CPK WNL
hepatitis panel neg
#Hypothyroidism
Elevated TSH with also high FT4 - repeat TFT in 2-3 days, then in 3-4 weeks to determine if Synthroid has to be decreased (due to concern for oversupplementation even with elevated TSH, but with RVR) - as discussed with bar turner
#Mild leukopenia
#Anemia
outpatient follow up with monitoring CBC
check anemia w/u, FOBT if possible
LDH WNL - no concern for hemolysis
#Anxiety
#ASCVD
#Insomnia
Cont home meds
DVT ppx lovenox
DNR/DNI
I have spent at least 51min reviewing chart, test results, communicating with consultnats, family bedside and direct patient care
Anticipated Discharge: > 48 hours
Subjective/Interval History
-
Date of Service: June 28, 2025
Objective Data
-
Labs:
Laboratory Results
06/28/25
03:51
WBC 4.6 L
Hgb 9.4 L
Hct 30.1 L
Plt Count 193
Sodium 135
Potassium 3.6
Chloride 96 L
Carbon Dioxide 38 H
BUN 25 H
Creatinine 0.8
Glucose 89
Calcium 8.4
Total Bilirubin 0.9
AST 49 H
ALT 78 H
Alkaline Phosphatase 80
Vital Signs:
Vital Signs
Temp Pulse Resp BP Pulse Ox
97.8 F 81 20 123/83 97
06/28/25 07:22 06/28/25 07:22 06/28/25 07:22 06/28/25 07:22 06/28/25 07:22
I&O
06/27/25 06/28/25 06/29/25
06:59 06:59 06:59
Intake Total 240 / 240 240 / 240
Output Total 200 / 200
Balance 240 / 240 40 / 40
Review of Systems
-
History Source: Patient
All other systems: Reviewed and negative
Physical Exam
-
General: No Apparent Distress
HEENT: Normocephalic
Respiratory: Decreased Breath Sounds (RLL)
GI: Soft, Nontender and Nondistended
Musculoskeletal: No Clubbing, No Cyanosis and No Edema
Neuro: Awake, Alert, Oriented and AO x 3
Psych: Calm
[2025-06-28 10:19] LABS: Ferritin 42.9 ng/ml (11.1-264.0)
[2025-06-28 10:51] LABS: Folate 11.7 ng/ml (2.76-20); Vitamin B12 908 pg/ml (239-931)
[2025-06-28 12:00] VITALS: BP 123/71
--- NOTE | 2025-06-28 12:15 | W.PN.CARDCBS ---
Today's Communication / Plan
-
40 of IV Lasix now and assess on daily basis regarding need for diuresis
Up titration of guideline directed medical therapy as blood pressure allows
Plan for cardiac resynchronization pacemaker this hospital stay followed by advancing AV janina blocking drugs as tolerated.
Most recently digoxin has been added, digoxin level pending for Sunday
If AV janina blocking agent up titration after permanent pacemaker implantation fails, there can be consideration for AV jainna ablation
Impression / Plan
-
Primary Tire Design Engineer: Dr. Craig of [facility] however patient's daughter discussing transitioning care to [facility]
Assessment:
Presentation with SOB
Acute HFrEF
Cardiomyopathy, new, EF 25-30%
Paroxysmal atrial fibrillation, now with RVR
Fall 06/22/25 with R knee ecchymoses
Admission to [facility] 05/2025 for CHF s/p R thora (transudative), afib s/p CV with recurrence
Prior amiodarone use, stopped 05/2025 admission due to 'concerns for nursing home toxicity'
s/p Watchman 07/2024
History of GI bleeding
Chronic HFpEF
HTN
Chronic LBBB
Hypothyroidism, with elevated TFTs
GERD
Anemia
Mild transaminitis
DNR code status
ECHO 06/26/25: EF 26%, mild to moderate LVH, aortic sclerosis, moderate to severe MR, mild TR, PAP 26 mmHg, small pericardial effusion seen
Plan:
Patient with recent admission to [facility], now presents to [facility] due to worsening SOB, fatigue since discharge. Heart failure with newly reduced ejection fraction in the setting of rapid atrial fibrillation. Weight is essentially
stable overnight, down approximately 5 pounds from admission. Blood pressure is on the low side. She is feeling a bit better. She remains on oxygen. She remains in rapid atrial fibrillation.
Plan at this time:
Heart failure with newly reduced left ventricular ejection fraction (proBNP 13,200) with acute volume overload (previously heart failure with preserved ejection fraction)
- She is diuresed well. Blood pressure has been on the low side. Held diuretic 06/27 but wt is up slightly and BP improved with stable renal function
Will give 40 mg of IV Lasix now (06/28/2025) and reassess further need for diuresis in a.m.
- Rate control atrial fibrillation plan as noted below. Currently on Toprol-XL. Being held intermittently because of low blood pressure.
- Plan to start Jardiance at discharge.
- Recently had Abington losartan discontinued because of hypotension and hyperkalemia continue to reassess. Given prior hyperkalemia (potassium stable here) and current low blood pressure at this time would avoid MRA. Continue to reassess. Given
low blood pressure have not started Entresto.
- Rate control has been difficult. She may require PPM and AVJ ablation. Given low left ventricular ejection fraction and very wide left bundle branch block with [place] Heart Association class III symptomatology and heart block from AVJ ablation
resulting in ventricular paced dependence, resynchronization pacemaker is indicated.
- Wean oxygen as tolerates.
Mitral regurgitation
- Moderate to severe on echocardiogram. Follow. May improve with resynchronization.
Paroxysmal now persistent atrial fibrillation with rapid rates (recent cardioversion and recurred shortly thereafter)
- Previously was on amiodarone and there was a question of abdominal symptoms. Despite diuresis LFTs remain persistently elevated and thyroid is abnormal. Will hold on amiodarone use at this time and continue to reassess. Of note on today's EKG
QT is also mildly prolonged.
-Given prolonged QT interval and heart failure with reduced ejection fraction antiarrhythmic medication choices are limited. Avoiding amiodarone for now. Dofetilide not acceptable given QT prolongation.
- Plan is now rate control rather than rhythm control.
Continue Toprol-XL but limited because of blood pressure.
On 06/27/2025, she was given digoxin 0.25 IV now and then 0.125 mg daily.
- Best option for this patient is likely resynchronization pacemaker with staged AVJ ablation.
I discussed with the patient and she is agreeable. I would envision conduction system pacemaker this admission and pushing AV janina blocking agents
As an outpatient there can be consideration for AVJ ablation
Undetermined timing at this point regarding pacemaker implantation, possible Tu or Sun
- Watchman (history of GI bleeding) in place however if plan is for cardioversion in the future would need short-term anticoagulation given risk. Would want to wait until healed from recent fall before this would be attempted. However, she is
unlikely to do well with rhythm control long-term with either antiarrhythmic drug therapy or ablation given antiarrhythmic drug therapy intolerances as well as her comorbidities and very enlarged atrium.
Hypothyroidism
- May need increased dose of thyroid medication. Defer to primary service.
Chronic left bundle branch block noted
Total time spent today was 51 minutes in preparing to see the patient, seeing the patient and coordination of care. This included review of recent laboratory evaluations, cardiact testing, imaging studies, primary care records, specialty
consultations, hospital records, as well as personally interviewing and examining the patient, which included discussion of their tests, review/ordering medications, and communicating with other healthcare professionals and also treatment planning
as well as counseling.
Progress Note - Tire Design Engineer
Subjective
Date of Service: June 28, 2025
She tells me that she does feel a little better today, a little stronger and a little less short of breath. No chest pain.
Objective
Labs:
06/28/25 03:51
06/28/25 03:51
Labs
Hgb 9.4 g/dL (12.0-16.0) L 06/28/25 03:51
Hct 30.1 % (37.0-47.0) L 06/28/25 03:51
Plt Count 193 10^3/uL (130-400) 06/28/25 03:51
Sodium 135 mmol/L (135-145) 06/28/25 03:51
Potassium 3.6 mmol/L (3.5-5.1) 06/28/25 03:51
BUN 25 mg/dl (7-17) H 06/28/25 03:51
Creatinine 0.8 mg/dL (0.6-1.0) 06/28/25 03:51
Glucose 89 mg/dl (70-99) 06/28/25 03:51
Troponins
06/25/25 06/25/25 06/25/25
18:11 19:07 22:04
Troponin I Cancelled 0.012 0.012
06/26/25 06/26/25
03:39 09:47
Troponin I 0.013 Cancelled
Vital Signs and I&O:
Vital Signs
Temp Pulse Resp BP Pulse Ox
97.6 F 81 20 123/83 97
06/28/25 12:00 06/28/25 07:22 06/28/25 12:00 06/28/25 07:22 06/28/25 12:00
Vital Signs
Temp Pulse Resp BP Pulse Ox
97.6 F 81 20 123/83 97
06/28/25 12:00 06/28/25 07:22 06/28/25 12:00 06/28/25 07:22 06/28/25 12:00
Intake & Output
06/26/25 06/27/25 06/28/25 06/29/25
06:59 06:59 06:59 06:59
Intake Total 240 / 240 240 / 240
Output Total 625 / 625 200 / 200
Balance -625 / -625 240 / 240 40 / 40
Physical Exam
Physical Exam
General: Well developed, well nourished in NAD.
Heart: Rapid/irregular, normal S1 and S2, no S3 no S4. There is a grade 2/6 apical holosystolic murmur no rub
Lungs: Crackles at the bases bilateral
Abdomen: Normal bowel sounds, soft, non-tender, non-distended.
Extremities: No clubbing, cyanosis and trace edema bilaterally.
Neuro: Grossly nonfocal, awake, alert and oriented x3.
[2025-06-28] MEDS: LANOXIN 125 MCG PO (12:47)
[2025-06-28] MEDS: FERRLECIT 110 MG IV (13:35)
[2025-06-28] MEDS: LASIX 40 MG IV (13:35)
--- NOTE | 2025-06-28 13:47 | W.PN.UPDATE ---
Update Note
Progress Note Update
R loculated effusion with Hx of recent pneumonia, unclear if relapse. Currently patient not septic, afebrile. Await for thoracentesis results for decision if infectious vs loculated 2/2 CHF. Hold off Abx
[2025-06-28 15:24] VITALS: BP 98/76
[2025-06-28] MEDS: LOVENOX 40 MG SC (17:51)
[2025-06-28 19:39] VITALS: BP 109/67
[2025-06-28 22:15] VITALS: BP 119/75
[2025-06-28] MEDS: TYLENOL 650 MG PO (23:41)
[2025-06-28] MEDS: DESYREL 50 MG PO (23:42)
[2025-06-29] VITALS (16 sets, daily range): BP systolic 65–137; BP diastolic 52–95; PULSE 91; O2SAT 96; BMI 25.1
--- NOTE | 2025-06-29 02:08 | PTCARENOTE ---
Pt. rec'd on RA at beginning of shift but pulse ox 85-87% and pt. visibly short of breath. Placed on 2L O2 NC with sats increasing to 92-96%, pt. much more comfortable. Right lung base diminished. NPO for abd ULS, possible thoracentesis later
today, pt. aware. Currently resting quietly.
[2025-06-29] MEDS: SYNTHROID 150 MCG PO (04:29)
[2025-06-29 05:11] LABS: Hematocrit 29.6 % (37.0-47.0); Hemoglobin 9.2 g/dL (12.0-16.0); Mean Corp Hgb Conc. 31.1 g/dL (33.0-37.0); Mean Corpuscular Volume 87.8 fL (81.0-99.0); Nucleated Red Blood Cells % 0 %; Platelet Count 178 10^3/uL (130-400); Red Cell Dist. Width 15.9 % (11.5-14.5)
[2025-06-29 05:44] LABS: Blood Urea Nitrogen 22 mg/dl (7-17); Calcium 8.5 mg/dl (8.4-10.2); Carbon Dioxide 37 mmol/L (22-30); Chloride 97 mmol/L (98-107); Estimated Creatinine Clearance 51 ml/min; Glucose 82 mg/dl (70-99); Magnesium 2.3 mg/dl (1.6-2.3); Potassium 3.6 mmol/L (3.5-5.1); Sodium 135 mmol/L (135-145); eGFR > 60.00
--- NOTE | 2025-06-29 08:19 | PTCARENOTE ---
received pt this am. pt is afib on the monitor, hr in the 90s, vss. pt offers no complaints at this time. pt ambulated into br x1 w/ rw. pt educated on plan of care and pt verbalized understanding. pt put on stretcher to be taken for thoracentesis.
--- NOTE | 2025-06-29 08:48 | W.PN.CARDCBS ---
Addendum entered and electronically signed by Brian Abdalla DO 06/29/25 17:47:
I saw and examined the patient.
The Lacquer Maker's note was reviewed and I agree with the note.
Comment:
Plan:
Continue IV diuresis. Will give additional Lasix IV today.
Heart rate better controlled with Toprol and digoxin
Permanent pacer, biventricular for cardiac resynchronization therapy next 48 hours likely July 01.
Could consider AVJ ablation if necessary in the future, as an outpatient for heart rate control if heart rates again become difficult to control.
Discussed with the PCP
Original Note:
Today's Communication / Plan
-
Will give another dose of IV Lasix today.
Continue heart rate control with Toprol and digoxin.
For possible PPM tomorrow versus Sunday with consideration for eventual AVJ ablation
Impression / Plan
-
Primary Opal Polisher: Dr. Craig of [facility] however patient's daughter discussing transitioning care to [facility]
Assessment:
Presentation with SOB
Acute HFrEF
Cardiomyopathy, new, EF 25-30%
Paroxysmal atrial fibrillation
Fall 06/22/25 with R knee ecchymoses
Admission to [facility] 05/2025 for CHF s/p R thora (transudative), afib s/p CV with recurrence
Prior amiodarone use, stopped 05/2025 admission due to 'concerns for camera prototyping engineer toxicity'
s/p Watchman 07/2024
History of GI bleeding
Chronic HFpEF
HTN
Chronic LBBB
Hypothyroidism, with elevated TFTs
GERD
Anemia
Mild transaminitis
DNR code status
Echo 06/26/2025: EF 26%, mild to moderate LVH, aortic sclerosis, moderate to severe MR, mild TR, PAP 26 mmHg, small pericardial effusion seen
Plan:
-Patient recently admitted to [facility] 05/2025 with heart failure and A-fib, presented to [facility] with worsening shortness of breath and fatigue. Readmitted with acute heart failure and rapid A-fib
-Remains in A-fib on review of telemetry, however heart rates currently better controlled with Toprol and digoxin.
-Previously on amiodarone, and this was stopped due to concern for toxicity. Not felt to be a candidate for dofetilide given QT prolongation
-Echo 06/26 with EF newly reduced at 26% as noted above. Given low EF with wide LBBB as well as [place] Heart Association class III symptomatology, there is consideration for resynchronization PPM with eventual AVJ ablation.
-Timing of PPM TBD, likely later this admission possibly Sunday or Sunday.
-h/o watchman noted. Continues on aspirin alone.
-Diuresing with IV Lasix this admission and improving symptomatically
-Weight up 2 pounds overnight. Will give another dose of IV Lasix 06/29. s/p R thoracentesis this AM with 700 cc removed.
-Continue to follow daily weights, I&O's. Creat stable at 0.7.
-Will continue up titration of GDMT for CM as BP allows.
-Previously on losartan, stopped during a admission due to hyperkalemia and hypotension.
-Continues on Toprol. Plan is to start Jardiance at discharge.
-Hypothyroidism noted with TSH 8.52, free T4 1.95. Defer management to primary service.
Progress Note - Opal Polisher
Subjective
Date of Service: June 29, 2025
Breathing continues to improve. No chest pain.
Objective
Labs:
06/29/25 04:17
06/29/25 04:17
Labs
Hgb 9.2 g/dL (12.0-16.0) L 06/29/25 04:17
Hct 29.6 % (37.0-47.0) L 06/29/25 04:17
Plt Count 178 10^3/uL (130-400) 06/29/25 04:17
Sodium 135 mmol/L (135-145) 06/29/25 04:17
Potassium 3.6 mmol/L (3.5-5.1) 06/29/25 04:17
BUN 22 mg/dl (7-17) H 06/29/25 04:17
Creatinine 0.7 mg/dL (0.6-1.0) 06/29/25 04:17
Glucose 82 mg/dl (70-99) 06/29/25 04:17
Troponins
06/26/25
09:47
Troponin I Cancelled
Vital Signs and I&O:
Vital Signs
Temp Pulse Resp BP Pulse Ox
97.7 F 65 20 134/70 98
06/29/25 08:10 06/29/25 08:10 06/29/25 08:10 06/29/25 08:10 06/29/25 08:10
Vital Signs
Temp Pulse Resp BP Pulse Ox
97.7 F 65 20 134/70 98
06/29/25 08:10 06/29/25 08:10 06/29/25 08:10 06/29/25 08:10 06/29/25 08:10
Intake & Output
06/27/25 06/28/25 06/29/25 06/30/25
06:59 06:59 06:59 06:59
Intake Total 240 / 240 240 / 240 240 / 240
Output Total 200 / 200 300 / 300
Balance 240 / 240 40 / 40 -60 / -60
Physical Exam
Physical Exam
GEN: No distress, awake, alert
HEENT: supple, anicteric, mmm
LUNGS: Few crackles b/l, no wheezes
CV: irregularly irregular, S1/S2, 2/6 syst murmur
EXT: No clubbing, cyanosis, or edema
NEURO: Gross non-focal
SKIN: Warm, dry, no rash
[2025-06-29 10:34] LABS: LDH 257 U/L (120-246)
[2025-06-29 10:48] LABS: Body Fluid Second Tech CW
--- NOTE | 2025-06-29 11:16 | W.PN.HOSP.TC ---
Addendum entered and electronically signed by Gerson Ramos MD 06/29/25 11:27:
#ESTEFANIA
can be reason for leukopenia too
IV iron
CBC with PCP in 1-2 weeks, if persistent leukopenia - hematology
Original Note:
Today's Communication/Plan
-
for CLAM BED WORKER in AM
records from [place] still not received
Assessment / Plan
Assessment / Plan
85yo F with PMHx of Afib s/p Watchman due to intolerance of anticoagulation, CHF, hypothyroidism, GERD, insomnia recent admission to [facility] with abdominal pain, later developed Afib RVR, had CV, had thoracentesis for R pleural effusion
then developed pneumonia and finally was d/c 1 week before admission to . Patient was haing recurrence of Afib with RVR and her wood crew supervisor advised her to come to ED. Patient was discharged on 2L home O2 from her previous hospitalization, Due to
loculated R pleural effusion - had thoracentesis on 06/29/25 with 700ml fluid removed that is transudate by lights criteria, pending CLAM BED WORKER device on 06/30/25
A/P:
#Subacute respiratory insufficiency
#Afib with RVR
#acute on chronic CHF, systolic
s/p watchman
Lasix, daily weight, follow electrolytes, Cr
Cardiology consult: started digoxin
Echo with 26% EF, moderate-severe MR
Acapella
COnt O2
Obtain records from [place] to al pleural fluid analysis, imaging and afib mgmt
GDMT upon d/c with ACEi, Aldactone, Entresto, Jardiance as tolerated, however might be limited due to low BP
resynchronization pacemaker with staged AVJ ablation for heart rate control of atrial fibrillation is indicated as per cardiology. Pending decision with family and patient
#R pleural effusion with atelectasis
s/p thoracentesis on 06/29/25 - transudate with no preliminary concern for empyema, pending Cx. No indication for Abx since no respiratory symptoms, no fever
#Constipation
laxatives
#Transaminitis
minimal, improving on better HR control, suspect hepatic congestion
2/2 CHF?, check US RUQ with portal Doppler
CPK WNL
hepatitis panel neg
#Hypothyroidism
Elevated TSH with also high FT4 - repeat TFT in 3 days showed improved TSH and normalized FT4, then in 3-4 weeks to determine if Synthroid has to be decreased (due to concern for oversupplementation even with elevated TSH, but with RVR) - as
discussed with sole buffer.
#Mild leukopenia
#Anemia
outpatient follow up with monitoring CBC
check anemia w/u, FOBT if possible
LDH WNL - no concern for hemolysis
#Anxiety
#ASCVD
#Insomnia
Cont home meds
DVT ppx lovenox
DNR/DNI
I have spent at least 52min reviewing chart, test results, communicating with consultnats, family over the phone and direct patient care
Anticipated Discharge: 24 - 48 hours
Subjective/Interval History
-
Date of Service: June 29, 2025
Objective Data
-
Labs:
Laboratory Results
06/29/25
04:17
WBC 4.2 L
Hgb 9.2 L
Hct 29.6 L
Plt Count 178
Sodium 135
Potassium 3.6
Chloride 97 L
Carbon Dioxide 37 H
BUN 22 H
Creatinine 0.7
Glucose 82
Calcium 8.5
Vital Signs:
Vital Signs
Temp Pulse Resp BP Pulse Ox
97.7 F 76 18 118/86 98
06/29/25 08:10 06/29/25 11:00 06/29/25 09:05 06/29/25 10:03 06/29/25 08:45
I&O
06/28/25 06/29/25 06/30/25
06:59 06:59 06:59
Intake Total 240 / 240 240 / 240
Output Total 200 / 200 300 / 300
Balance 40 / 40 -60 / -60
Review of Systems
-
History Source: Patient
All other systems: Reviewed and negative
Physical Exam
-
General: No Apparent Distress
HEENT: Normocephalic
GI: Soft, Nontender and Nondistended
Neuro: Awake, Alert, Oriented and AO x 3
Psych: Calm
[2025-06-29] MEDS: PROTONIX 40 MG PO ×2 (11:50→21:14)
[2025-06-29] MEDS: TOPROL XL 50 MG PO ×2 (11:50→21:14)
[2025-06-29] MEDS: ZOLOFT 100 MG PO (11:50)
[2025-06-29] MEDS: ASPIR LOW (ENTERIC COATED) 81 MG PO (11:50)
[2025-06-29] MEDS: LANOXIN 125 MCG PO (13:34)
[2025-06-29] MEDS: FERRLECIT 110 MG IV (13:34)
--- NOTE | 2025-06-29 14:38 | CM ---
Chart reviewed. Patient is independent of ADLS, lives alone in a apartment, 3rd floor, elevator access, ambulates with a RW, wears O2 2L at home. Patient with frequent falls, daughter has been staying with her. PT evaluation recommending SNF.
Patient's daughter prefers [facility] and [facility], both accept patient's insurance. Referral sent. Patient will need insurance authorization. Plan is for the patient to go to SNF when medically ready. CM to follow
[2025-06-29] MEDS: LASIX 40 MG IV (15:19)
[2025-06-29] MEDS: LOVENOX 40 MG SC (17:49)
--- NOTE | 2025-06-29 19:12 | PTCARENOTE ---
pt continues to be afib on the monitor, hr in the 80s, vss. pt offers no complains at this time. pt educated on plan of care and pt verbalized understanding. bed alarm in place. call matthews within reach.
[2025-06-29] MEDS: TYLENOL 650 MG PO (23:04)
[2025-06-29] MEDS: DESYREL 50 MG PO (23:04)
[2025-06-30] VITALS (8 sets, daily range): BP systolic 91–123; BP diastolic 49–91; BMI 24.3
--- NOTE | 2025-06-30 00:56 | PTCARENOTE ---
Pt SR on TELE monitor, VSS, and AAO*3. Bed alarm active. Pt requested sleep aid and Tylenol at bed time. Now resting with call matthews in reach. Plan of care ongoing.
--- NOTE | 2025-06-30 01:21 | PTCARENOTE ---
Pt Afib on TELE monitor, VSS, and AAO*3. Bed alarm active. Pt requested sleep aid and Tylenol at bed time, given as ordered. Now resting with call matthews in reach. Plan of care ongoing
[2025-06-30] MEDS: SYNTHROID 150 MCG PO (04:27)
[2025-06-30 05:04] LABS: Hematocrit 31.3 % (37.0-47.0); Hemoglobin 9.7 g/dL (12.0-16.0); Mean Corp Hgb Conc. 31.0 g/dL (33.0-37.0); Mean Corpuscular Volume 87.9 fL (81.0-99.0); Nucleated Red Blood Cells % 0 %; Platelet Count 189 10^3/uL (130-400); Red Cell Dist. Width 15.9 % (11.5-14.5)
[2025-06-30 05:29] LABS: ALT (SGPT) 56 U/L (0-35); AST (SGOT) 40 U/L (14-36); Albumin 3.0 g/dl (3.5-5.0); Alkaline Phosphatase 68 U/L (38-126); Blood Urea Nitrogen 19 mg/dl (7-17); Calcium 8.3 mg/dl (8.4-10.2); Carbon Dioxide 36 mmol/L (22-30); Chloride 98 mmol/L (98-107); Estimated Creatinine Clearance 51 ml/min; Glucose 72 mg/dl (70-99); Potassium 3.6 mmol/L (3.5-5.1); Sodium 137 mmol/L (135-145); Total Protein 5.3 g/dl (6.3-8.2); eGFR > 60.00
[2025-06-30] MEDS: ASPIR LOW (ENTERIC COATED) 81 MG PO (09:18)
[2025-06-30] MEDS: ZOLOFT 100 MG PO (09:19)
[2025-06-30] MEDS: TOPROL XL 50 MG PO ×2 (09:19→19:20)
[2025-06-30] MEDS: PROTONIX 40 MG PO ×2 (09:19→19:20)
--- NOTE | 2025-06-30 10:21 | W.PN.HOSP.TC ---
Today's Communication/Plan
-
BIOANALYST placemtn today
Assessment / Plan
Assessment / Plan
85yo F with PMHx of Afib s/p Watchman due to intolerance of anticoagulation, CHF, hypothyroidism, GERD, insomnia recent admission to [facility] with abdominal pain, later developed Afib RVR, had CV, had thoracentesis for R pleural effusion
then developed pneumonia and finally was d/c 1 week before admission to . Patient was haing recurrence of Afib with RVR and her supervisor fusing room advised her to come to ED. Patient was discharged on 2L home O2 from her previous hospitalization, Due to
loculated R pleural effusion - had thoracentesis on 06/29/25 with 700ml fluid removed that is transudate by lights criteria, pending Cx and Path, patient scheduled for BIOANALYST device on 06/30/25
A/P:
#Subacute respiratory insufficiency
#Afib with RVR
#acute on chronic CHF, systolic
s/p watchman
Lasix, daily weight, follow electrolytes, Cr
Cardiology consult: started digoxin
Echo with 26% EF, moderate-severe MR
Acapella
COnt O2
Obtain records from [place] to [facility] pleural fluid analysis, imaging and afib mgmt
GDMT upon d/c with ACEi, Aldactone, Entresto, Jardiance as tolerated, however might be limited due to low BP
resynchronization pacemaker with staged AVJ ablation for heart rate control of atrial fibrillation is indicated as per cardiology. BIOANALYST placement on 06/30/25
#R pleural effusion with atelectasis
s/p thoracentesis on 06/29/25 - transudate with no preliminary concern for empyema, pending Cx. No indication for Abx since no respiratory symptoms, no fever
gram stain neg for organism, culture and path pending
#Constipation
laxatives
#Transaminitis
minimal, improving on better HR control, suspect hepatic congestion
2/2 CHF?, check US RUQ with portal Doppler
CPK WNL
hepatitis panel neg
#Hypothyroidism
Elevated TSH with also high FT4 - repeat TFT in 3 days showed improved TSH and normalized FT4, then in 3-4 weeks to determine if Synthroid has to be decreased (due to concern for oversupplementation even with elevated TSH, but with RVR) - as
discussed with factory maintenance technician.
#Mild leukopenia
#Anemia
outpatient follow up with monitoring CBC
check anemia w/u, FOBT if possible
LDH WNL - no concern for hemolysis
#Anxiety
#ASCVD
#Insomnia
Cont home meds
DVT ppx lovenox
DNR/DNI
I have spent at least 36min reviewing chart, test results, communicating with consultnats, family over the phone and direct patient care
Anticipated Discharge: 24 - 48 hours
Subjective/Interval History
-
Date of Service: June 30, 2025
Objective Data
-
Labs:
Laboratory Results
06/30/25
04:00
WBC 4.5 L
Hgb 9.7 L
Hct 31.3 L
Plt Count 189
Sodium 137
Potassium 3.6
Chloride 98
Carbon Dioxide 36 H
BUN 19 H
Creatinine 0.7
Glucose 72
Calcium 8.3 L
Total Bilirubin 0.8
AST 40 H
ALT 56 H
Alkaline Phosphatase 68
Vital Signs:
Vital Signs
Temp Pulse Resp BP Pulse Ox
97.3 F 77 18 123/91 91
06/30/25 08:12 06/30/25 08:12 06/30/25 08:12 06/30/25 03:52 06/30/25 08:12
I&O
06/29/25 06/30/25 07/01/25
06:59 06:59 06:59
Intake Total 240 / 240 240 / 240
Output Total 300 / 300 250 / 250 300 / 300
Balance -60 / -60 -10 / -10 -300 / -300
--- NOTE | 2025-06-30 12:52 | CM ---
Chart reviewed. Patient is independent of ADLS, lives in a apartment, 3rd floor, elevator access, ambulates with a RW and wears Home O2 2l. PT evaluation recommending SNF. Referrals sent to [facility]. Patient will need
authorization. Plan is for the patient to go to SNF when medically ready. CM to follow
[2025-06-30] MEDS: LANOXIN 125 MCG PO (12:56)
--- NOTE | 2025-06-30 13:55 | W.PN.CARDCBS ---
Addendum entered and electronically signed by Brian Abdalla DO 06/30/25 20:51:
I saw and examined the patient.
The Oil Well Service Unit Operator's note was reviewed and I agree with the note.
Comment:
Plan:
Echo with newly reduced EF
Cont IV lasix
Resynchronization therapy with PPM AM Jul 01
Discussed with EP, consider outpt ischemic eval pending EF response to therapy. CM suspected to be tachy-induced.
HR improved on Toprol and Digoxin
Check Dig level.
If she has recurrence of difficult to control HR, could consider eventual AVJ ablation.
She was on amio previously, stopped due to concern for toxicity. Not a candidate for Tikosyn due to QT prolongation
Previously on amiodarone, which was stopped due to concern for toxicity. Not felt to be a candidate for dofetilide given QT prolongation
-Echo 06/26 with EF newly reduced at 26% as noted above. Given low EF with wide LBBB as well as [place] Heart Association class III symptomatology, plan for PPM placement with resynchronization therapy 07/01 with eventual AVJ ablation.
-h/o watchman noted. Continues on aspirin alone.
-Diuresing with IV Lasix this admission and improving symptomatically. continue IV lasix 40mg daily. wean supp O2 as able. s/p R thoracentesis 06/29 with 700 cc removed.
-Continue to follow daily weights, I&O's. Creat stable at 0.7.
-Will continue uptitration of GDMT for CM as BP allows, hypotension presently limiting. Previously on losartan, stopped during [facility] admission due to hyperkalemia and hypotension. Consider SGLT2 inhibitor upon DC
-Cardiomyopathy suspected secondary to atrial fibrillation with RVR. Will need ischemic evaluation as outpatient
Original Note:
Today's Communication / Plan
-
IV lasix
wean supp O2
continue toprol, dig. dig level in AM
PPM in AM. eventual AVJ ablation
Impression / Plan
-
Primary Police Academy Instructor: Dr. Craig of [facility] however patient's daughter discussing transitioning care to [facility]
Assessment:
Presentation with SOB
Acute HFrEF
Cardiomyopathy, new, EF 25-30%
Paroxysmal atrial fibrillation
Fall 06/22/25 with R knee ecchymoses
Admission to [facility] 05/2025 for CHF s/p R thora (transudative), afib s/p CV with recurrence
Prior amiodarone use, stopped 05/2025 admission due to 'concerns for jail toxicity'
s/p Watchman 07/2024
History of GI bleeding
Chronic HFpEF
HTN
Chronic LBBB
Hypothyroidism, with elevated TFTs
GERD
Anemia
Mild transaminitis
DNR code status
Echo 06/26/2025: EF 26%, mild to moderate LVH, aortic sclerosis, moderate to severe MR, mild TR, PAP 26 mmHg, small pericardial effusion seen
Plan:
-Patient recently admitted to [facility] 05/2025 with heart failure and A-fib, presented to [facility] with worsening shortness of breath and fatigue. Readmitted with acute heart failure and rapid A-fib
-Remains in rate controlled A-fib on review of telemetry. continue Toprol and digoxin.
-Previously on amiodarone, which was stopped due to concern for toxicity. Not felt to be a candidate for dofetilide given QT prolongation
-Echo 06/26 with EF newly reduced at 26% as noted above. Given low EF with wide LBBB as well as [place] Heart Association class III symptomatology, plan for PPM placement with resynchronization therapy 07/01 with eventual AVJ ablation.
-h/o watchman noted. Continues on aspirin alone.
-Diuresing with IV Lasix this admission and improving symptomatically. continue IV lasix 40mg daily. wean supp O2 as able. s/p R thoracentesis 06/29 with 700 cc removed.
-Continue to follow daily weights, I&O's. Creat stable at 0.7.
-Will continue uptitration of GDMT for CM as BP allows, hypotension presently limiting. Previously on losartan, stopped during [facility] admission due to hyperkalemia and hypotension. Consider SGLT2 inhibitor upon DC
-Cardiomyopathy suspected secondary to atrial fibrillation with RVR. Will need ischemic evaluation as outpatient
-Hypothyroidism noted with TSH 8.52, free T4 1.95. Defer management to primary service.
-d/w nursing
Progress Note - Police Academy Instructor
Subjective
Date of Service: June 30, 2025
without complaints
Objective
Labs:
06/30/25 04:00
06/30/25 04:00
Labs
Hgb 9.7 g/dL (12.0-16.0) L 06/30/25 04:00
Hct 31.3 % (37.0-47.0) L 06/30/25 04:00
Plt Count 189 10^3/uL (130-400) 06/30/25 04:00
Sodium 137 mmol/L (135-145) 06/30/25 04:00
Potassium 3.6 mmol/L (3.5-5.1) 06/30/25 04:00
BUN 19 mg/dl (7-17) H 06/30/25 04:00
Creatinine 0.7 mg/dL (0.6-1.0) 06/30/25 04:00
Glucose 72 mg/dl (70-99) 06/30/25 04:00
Vital Signs and I&O:
Vital Signs
Temp Pulse Resp BP Pulse Ox
98.1 F 80 18 102/49 98
06/30/25 12:50 06/30/25 12:56 06/30/25 12:50 06/30/25 12:52 06/30/25 12:50
Vital Signs
Temp Pulse Resp BP Pulse Ox
98.1 F 80 18 102/49 98
06/30/25 12:50 06/30/25 12:56 06/30/25 12:50 06/30/25 12:52 06/30/25 12:50
Intake & Output
06/28/25 06/29/25 06/30/25 07/01/25
07:59 07:59 07:59 07:59
Intake Total 240 / 240 240 / 240 240 / 240
Output Total 200 / 200 300 / 300 250 / 250 300 / 300
Balance 40 / 40 -60 / -60 -10 / -10 -300 / -300
Physical Exam
Physical Exam
GEN: No distress, awake, oriented x3. sitting in chair. on supp O2
HEENT: supple, anicteric, mmm, eomi
LUNGS: Crackles B/L, no wheezes
CV: Irreg, S1/S2, 1/6 syst LSB
ABD: soft, BS+, NT/ND
EXT: No cyanosis, clubbing. trace edema of B/L LE
NEURO: Gross non-focal
SKIN: Warm, pink, dry. No rash
[2025-06-30] MEDS: KLOR-CON 20 MEQ PO (14:37)
[2025-06-30] MEDS: LASIX 40 MG IV (14:37)
[2025-06-30] MEDS: FERRLECIT 110 MG IV (14:37)
[2025-06-30] MEDS: LOVENOX 40 MG SC (16:54)
[2025-06-30] MEDS: DESYREL 50 MG PO (22:15)
[2025-07-01] VITALS (20 sets, daily range): BP systolic 89–130; BP diastolic 54–103; PULSE 89; O2SAT 95; BMI 23.4
[2025-07-01 04:59] LABS: Hematocrit 30.1 % (37.0-47.0); Hemoglobin 9.5 g/dL (12.0-16.0); Mean Corp Hgb Conc. 31.6 g/dL (33.0-37.0); Mean Corpuscular Volume 88.0 fL (81.0-99.0); Nucleated Red Blood Cells % 0 %; Platelet Count 173 10^3/uL (130-400); Red Cell Dist. Width 16.1 % (11.5-14.5)
[2025-07-01 05:26] LABS: ALT (SGPT) 50 U/L (0-35); AST (SGOT) 38 U/L (14-36); Albumin 2.9 g/dl (3.5-5.0); Alkaline Phosphatase 65 U/L (38-126); Blood Urea Nitrogen 17 mg/dl (7-17); Calcium 8.6 mg/dl (8.4-10.2); Carbon Dioxide 36 mmol/L (22-30); Chloride 100 mmol/L (98-107); Digoxin 0.8 ng/ml (0.8-2.0); Estimated Creatinine Clearance 59 ml/min; Glucose 83 mg/dl (70-99); Potassium 3.7 mmol/L (3.5-5.1); Sodium 137 mmol/L (135-145); Total Protein 5.1 g/dl (6.3-8.2); eGFR > 60.00
--- NOTE | 2025-07-01 05:45 | PTCARENOTE ---
No complaints overnight, VSS, A-fib with BBC on the monitor. Pt. washed and CHG wiped this morning, linens changed. NPO. Pt. aware of plan for PPM today.
[2025-07-01] MEDS: SYNTHROID 150 MCG PO (06:17)
[2025-07-01] MEDS: ASPIR LOW (ENTERIC COATED) 81 MG PO (08:21)
[2025-07-01] MEDS: ZOLOFT 100 MG PO (08:21)
[2025-07-01] MEDS: TOPROL XL 50 MG PO ×2 (08:21→21:23)
[2025-07-01] MEDS: PROTONIX 40 MG PO ×2 (08:21→19:53)
[2025-07-01] MEDS: LASIX 40 MG IV (08:22)
--- NOTE | 2025-07-01 09:17 | W.PN.HOSP.TC ---
Today's Communication/Plan
-
resynchronization therapy with PPM today.
Assessment / Plan
Assessment / Plan
Assessment: :
85yo F with PMHx of Afib s/p Watchman due to intolerance of anticoagulation, CHF, hypothyroidism, GERD, insomnia recent admission to [facility] with abdominal pain, later developed Afib RVR, had CV, had thoracentesis for R pleural effusion
then developed pneumonia and finally was d/c 1 week before admission to . Patient was haing recurrence of Afib with RVR and her superintendent colliery advised her to come to ED. Patient was discharged on 2L home O2 from her previous hospitalization, Due to
loculated R pleural effusion - had thoracentesis on 06/29/25 with 700ml fluid removed that is transudate by lights criteria, pending Cx and Path, patient scheduled for DRYING EQUIPMENT OPERATOR device on 06/30/25
Assessment/plan:
#Subacute respiratory insufficiency
#Afib with RVR
#acute on chronic CHF, systolic
s/p watchman
Lasix, daily weight, follow electrolytes, Cr
Cardiology consult: started digoxin
Echo with 26% EF, moderate-severe MR
Acapella
COnt O2
Obtain records from [place] to [facility] pleural fluid analysis, imaging and afib mgmt
GDMT upon d/c with ACEi, Aldactone, Entresto, Jardiance as tolerated, however might be limited due to low BP
07/01 plan for resynchronization pacemaker with staged AVJ ablation for heart rate control of atrial fibrillation is indicated as per cardiology.
#R pleural effusion with atelectasis
s/p thoracentesis on 06/29/25 - transudate with no preliminary concern for empyema, pending Cx. No indication for Abx since no respiratory symptoms, no fever
gram stain neg for organism, culture and path pending
#Constipation
laxatives
#Transaminitis
minimal, improving.
hepatitis panel neg
#Hypothyroidism
Elevated TSH with also high FT4 - repeat TFT in 3 days showed improved TSH and normalized FT4, then in 3-4 weeks to determine if Synthroid has to be decreased (due to concern for oversupplementation even with elevated TSH, but with RVR) - as
discussed with brick loader.
#Mild leukopenia
#Anemia
outpatient follow up with monitoring CBC
check anemia w/u, FOBT if possible
LDH WNL - no concern for hemolysis
#Anxiety
#ASCVD
#Insomnia
Cont home meds
CODE STATUS: DNR
DVT prophylaxis: Lovenox
Diet: cardiac diet
Disposition: resynchronization therapy with PPM today.
Total time spent on today's encounter was 65 minutes which included time spent in counseling the patient/family regarding diagnosis and treatment plan as listed above, goals of care, and symptom management. Case was discussed with nursing staff,
specialists, and care coordinators/case management. All labs and imaging personally reviewed by me. Remainder the time spent in detailed review of previous records, lab data, imaging, and other medical provider documentation.
Anticipated Discharge: > 48 hours
Subjective/Interval History
-
Date of Service: July 01, 2025
Patient seen and examined at bedside, denies any chest pain or shortness of breath, plan for resynchronization therapy with permanent pacemaker implantation.
Objective Data
-
Labs:
Laboratory Results
07/01/25
04:47
WBC 3.7 L
Hgb 9.5 L
Hct 30.1 L
Plt Count 173
Sodium 137
Potassium 3.7
Chloride 100
Carbon Dioxide 36 H
BUN 17
Creatinine 0.6
Glucose 83
Calcium 8.6
Total Bilirubin 0.7
AST 38 H
ALT 50 H
Alkaline Phosphatase 65
Vital Signs:
Vital Signs
Temp Pulse Resp BP Pulse Ox
98.5 F 95 18 109/54 95
07/01/25 08:15 07/01/25 03:57 07/01/25 08:15 07/01/25 03:57 07/01/25 08:15
I&O
06/30/25 07/01/25 07/02/25
06:59 06:59 06:59
Intake Total 240 / 240
Output Total 250 / 250 1000 / 1000 250 / 250
Balance -10 / -10 -1000 / -1000 -250 / -250
Physical Exam
-
General: Well Developed, Well Nourished, No Apparent Distress and Comfortable
HEENT: Normocephalic, Atraumatic, Moist Mucous Membranes, No Ptosis, PERRLA and Nose Appears Normal
Respiratory: Clear to Auscultation and Non Labored Respirations
Cardiac: S1/S2 and Irregular Rhythm
Breast: Deferred by me
GI: Soft, Nontender, Nondistended and Normal Bowel Sounds
Genito-urinary: No Costovertebral Tender
Musculoskeletal: No Clubbing, No Cyanosis and No Edema
Skin: Warm
Neuro: Awake, Alert, Oriented, AO x 3 and No Motor Deficits
Psych: Calm
Data Reviewed
-
Diagnostic Radiology: Image personally visualized and interpreted and Report Reviewed by me
CT Scan: Image personally visualized and interpreted and Report Reviewed by me
Ultrasound: Image personally visualized and interpreted and Report Reviewed by me
MRI: Image personally visualized and interpreted and Report Reviewed by me
Medical Tests (Nuc Med, Echo etc): Image personally visualized and interpreted and Report Reviewed by me
Labs: Labs Reviewed by me
Old Records: Reviewed
--- NOTE | 2025-07-01 09:17 | PTCARENOTE ---
Patient comfortable at rest. AO x3. NPO for PPM today, A-fib BBB. Decreased breath sounds right base, oxygen at 1 liter NC 95%. Incontinent of urine, care provided. Right knee ecchymotic, recent fall, bed alarm audible. Plan of care reviewed,
verbalized understanding, call matthews in reach
--- NOTE | 2025-07-01 12:59 | PTCARENOTE ---
Report called and patient sent to electronic lab technician
--- NOTE | 2025-07-01 13:04 | CM ---
Chart reviewed. Patient is independent of ADLS, lives alone in a apartment 3rd floor, elevator access, wears Home O2, current with Jose Mcnulty. Patient going for a PPM today. PT evaluation recommending SNF. Referrals sent to [facility]
[place]. CM to reach out for bed availability. Patient will need authorizations for placement. CM to follow
--- NOTE | 2025-07-01 14:20 | ITS.CL.PACE ---
Interior Decorator Painting - Pacemaker Implant
Pacemaker Implant
Procedure Report:
PACEMAKER IMPLANT REPORT
Primary fuel system maintenance worker: Dr Brian Abdalla
Date of Procedure: 07/01/25
Procedure:
Implantation of single-chamber permanent pacemaker utilizing the left bundle branch for conduction system pacing
Indication/Diagnosis:
Permanent atrial fibrillation with tachy-aria syndrome (sick sinus syndrome).
After informed consent was obtained, 'time out' was called and confirmed, the patient was prepped and draped in a sterile fashion. Lidocaine with epi was used for local anesthesia. Central venous access was obtained via subclavian venipuncture. An
incision was made along the left chest and a pre-pectoral pocket was formed. Using a Seldinger technique and peel-away sheaths, the pacing leads were placed under fluoroscopic guidance.
Fluoroscopy was used to determine likely anatomic site for left bundle branch pacing. The TissueInformaticstronic C315 sheath was used to deliver the Medtronic 3830 Selectsecure pacing lead with the helix exposed just exposed from the sheath tip during continuous
monitoring when pacemapping the septum during gentle clockwise rotation to obtain a paced QRS morphology of a W pattern in lead V1. Once the suspected optimal site was identified, lead deployment was performed with several rapid rotations as paced
QRS morphology was intermittently monitored until a paced QRS complex in lead V1 demonstrated development of an R wave qR.
Unipolar pacing impedance dropped by approximately 100 ohms suggesting it had reached the left ventricular subendocardial.
Stable VEgm injury current is present throughout final lead position including at end of case, suggesting there was no perforation through the septum into the LV cavity.
Unipolar pacing impedance is 1100 Ohms
Unipolar pacing threshold is stable at 1 V @ 0.4 ms.
Final conduction system paced QRS complex duration is 134 ms (baseline QRS is left bundle branch block and 174 ms)
LVAT is 79 ms and peak V5 -> peak V1 timing is 50 ms
There is QRS transition to LVSP / selective LBBP during threshold testing
Once testing (see below) showed adequate and stable function, the lead was secured using the suture sleeve. The pocket was liberally irrigated with antibiotic solution. The leads were connected to the generator header and the leads and generator
were placed within the pocket. Fluoroscopy confirmed stable lead position. The pocket was closed in the typical fashion.
Fluoroscopy was used to guide lead placement.
IMPLANTS:
Medtronic [id number], SN: [id number], Left Pectoral
Left Bundle: Medtronic 3830 , SN:[id number], Interventricular septum at LBB
DEVICE TESTING:
Sensing: RV 14 mV
Capture: RV 0.75 V@0.4ms
Ohms: RV 1120
FINAL PROGRAMMING
Aria Pacing: AAIR+ 60-130 ppm
COMPLICATIONS:
None
CONCLUSIONS:
Successful implant of dual chamber permanent pacemaker utilizing Left Bundle Branch conduction system capture for ventricular resynchronization pacing.
RECOMMENDATIONS:
- Post-op care (tele, CXR, IV abx)
- In-Office wound check in 5-7 days
- Increase metoprolol succinate from 50 mg to 75 mg twice daily and continue digoxin for attempted medical rate control
- Consideration for AV janina ablation in 3 to 4 weeks for more consistent rate control.
Copy to:
Dr Brian Abdalla
[2025-07-01] MEDS: LANOXIN 125 MCG PO (14:35)
[2025-07-01] MEDS: FERRLECIT 110 MG IV (14:36)
--- NOTE | 2025-07-01 14:45 | PTCARENOTE ---
Patient received from the ship laborer. AO x3, sleepy but arousable. V-paced underlying A-FIB, BBB. Left chest wall pressure CDI with left immobilizer. EKG performed. Call matthews in reach
[2025-07-01] MEDS: LOVENOX 40 MG SC (17:54)
[2025-07-01] MEDS: TYLENOL 650 MG PO (19:52)
[2025-07-01] MEDS: TOPROL XL 25 MG PO (21:23)
[2025-07-01] MEDS: ANCEF 5 IV (21:24)
[2025-07-02] VITALS (12 sets, daily range): BP systolic 82–127; BP diastolic 45–89; PULSE 96; O2SAT 91; BMI 24.0
[2025-07-02 04:11] LABS: Hematocrit 32.0 % (37.0-47.0); Hemoglobin 10.0 g/dL (12.0-16.0); Mean Corp Hgb Conc. 31.3 g/dL (33.0-37.0); Mean Corpuscular Volume 88.2 fL (81.0-99.0); Platelet Count 166 10^3/uL (130-400); Red Cell Dist. Width 16.2 % (11.5-14.5)
[2025-07-02 04:29] LABS: Blood Urea Nitrogen 16 mg/dl (7-17); Calcium 8.3 mg/dl (8.4-10.2); Carbon Dioxide 34 mmol/L (22-30); Chloride 100 mmol/L (98-107); Estimated Creatinine Clearance 51 ml/min; Glucose 86 mg/dl (70-99); Magnesium 2.0 mg/dl (1.6-2.3); Potassium 3.6 mmol/L (3.5-5.1); Sodium 138 mmol/L (135-145); eGFR > 60.00
[2025-07-02] MEDS: SYNTHROID 150 MCG PO (05:09)
[2025-07-02] MEDS: ANCEF 5 IV (05:09)
[2025-07-02] MEDS: PROTONIX 40 MG PO ×2 (09:00→21:14)
[2025-07-02] MEDS: TOPROL XL 50 MG PO ×2 (09:00→21:14)
[2025-07-02] MEDS: ASPIR LOW (ENTERIC COATED) 81 MG PO (09:00)
[2025-07-02] MEDS: TYLENOL 650 MG PO (09:00)
[2025-07-02] MEDS: ZOLOFT 100 MG PO (09:01)
[2025-07-02] MEDS: LASIX 40 MG IV (09:01)
[2025-07-02] MEDS: TOPROL XL 25 MG PO (09:37)
--- NOTE | 2025-07-02 09:53 | W.PN.CARDCBS ---
Addendum entered and electronically signed by Greg Crawford MD 07/02/25 12:52:
I saw and examined the patient.
The Foreign Language Instructor's note was reviewed and I agree with the note.
Comment: Briefly, 85-year-old woman past medical history of heart failure with reduced ejection fraction and persistent atrial fibrillation status post watchman who presents in acute decompensated heart failure
Rates have been difficult to control in AFib therefore patient underwent permanent pacemaker implant yesterday for treatment of tachybrady syndrome
Continue metoprolol and digoxin for rate control
Given prior Watchman maintained on aspirin only
In regards to HF with reduced EF appears nearly euvolemic today
Would continue IV lasix today and tentatively transition to PO lasix tomorrow
Continue metoprolol. Additional GDMT is limited by marginal BP.
Rest per Vicenta Fonseca
Original Note:
Today's Communication / Plan
-
Continue Toprol, digoxin for rate control
s/p PPM 07/01
Aspirin alone w/ h/o watchman
Diuresing, recheck proBNP
Impression / Plan
-
Primary Plant Associate: Dr. Craig of [facility] however patient's daughter discussing transitioning care to [facility]
Assessment:
Presented with SOB
Acute HFrEF
Cardiomyopathy, new, EF 25-30%
Paroxysmal atrial fibrillation
prior amiodarone use, stopped 05/2025 admission due to 'concerns for shelter toxicity'
Not candidate for dofetilide due to QT prolongation
s/p Watchman 07/2024
s/p Medtronic DC PPM utilizing LBB conduction system capture 07/02/2025
h/o GI bleeding
Chronic HFpEF
Fall 06/22/25 with R knee ecchymoses
Admission to [facility] 05/2025 for CHF s/p R thora (transudative), afib s/p CV with recurrence
HTN
Chronic LBBB
Hypothyroidism, with elevated TFTs
GERD
Anemia
Mild transaminitis
DNR code status
Echo 06/26/2025: EF 26%, mild to moderate LVH, aortic sclerosis, moderate to severe MR, mild TR, PAP 26 mmHg, small pericardial effusion seen
Plan:
-Patient recently admitted to [facility] 05/2025 with heart failure and A-fib, presented to [facility] with worsening shortness of breath and fatigue 06/25/2025. Readmitted with acute heart failure and rapid A-fib.
-Echo 06/26 showed EF newly reduced at 26% as noted above.
-Underwent DC PPM implant 07/01/2025 utilizing LBB conduction system capture for ventricular resynchronization pacing.
-Continues on Toprol 75mg BID (dose increased 07/01) and digoxin 0.125 mcg daily for rate control. HRs overall stable.
-There is consideration for eventual AV node ablation if needed. Would be planned as OP in 3-4 weeks.
-Continue aspirin alone for anticoagulation given h/o watchman.
-Diuresing with IV lasix 40mg daily. Improved symptomatically w/ no SOB. Off supplemental O2. s/p thoracentesis 06/29 with 700 cc removed.
-Creat stable at 0.7. Will repeat proBNP to reassess as volume status appears improved, but weight up somewhat overnight.
-Continue uptitration of GDMT for CM as BP allows. Presently on Toprol alone. Previously on losartan but this was stopped during recent admission at [facility] due to hyperkalemia and hypotension.
-Plan is to consider SGLT2 inhibitor upon discharge.
-Hypothyroidism noted with TSH 8.52, free T4 1.95. Defer management to primary service.
-Has been arranged for followup incision check appt w/ [facility].
Progress Note - Plant Associate
Subjective
Date of Service: July 02, 2025
No complaints. Feeling well this AM.
Objective
Labs:
07/02/25 03:44
07/02/25 03:44
Labs
Hgb 10.0 g/dL (12.0-16.0) L 07/02/25 03:44
Hct 32.0 % (37.0-47.0) L 07/02/25 03:44
Plt Count 166 10^3/uL (130-400) 07/02/25 03:44
Sodium 138 mmol/L (135-145) 07/02/25 03:44
Potassium 3.6 mmol/L (3.5-5.1) 07/02/25 03:44
BUN 16 mg/dl (7-17) 07/02/25 03:44
Creatinine 0.7 mg/dL (0.6-1.0) 07/02/25 03:44
Glucose 86 mg/dl (70-99) 07/02/25 03:44
Digoxin 0.8 ng/ml (0.8-2.0) 07/01/25 04:47
Vital Signs and I&O:
Vital Signs
Temp Pulse Resp BP Pulse Ox
97.8 F 94 16 120/72 90
07/02/25 07:55 07/02/25 09:37 07/02/25 07:55 07/02/25 09:37 07/02/25 08:53
Vital Signs
Temp Pulse Resp BP Pulse Ox
97.8 F 94 16 120/72 90
07/02/25 07:55 07/02/25 09:37 07/02/25 07:55 07/02/25 09:37 07/02/25 08:53
Intake & Output
06/30/25 07/01/25 07/02/25 07/03/25
06:59 06:59 06:59 06:59
Intake Total 240 / 240 110 / 110
Output Total 250 / 250 1000 / 1000 250 / 250
Balance -10 / -10 -1000 / -1000 -140 / -140
Physical Exam
Physical Exam
GEN: No distress, awake, oriented x3. sitting in chair.
HEENT: supple, anicteric, mmm
LUNGS: CTA b/l, no wheezes
CV: Irreg, S1/S2, 1/6 syst LSB
EXT: No cyanosis, clubbing, or edema
NEURO: Gross non-focal
SKIN: Warm, pink, dry. No rash
[2025-07-02] MEDS: LANOXIN 125 MCG PO (12:13)
--- NOTE | 2025-07-02 13:00 | W.PN.HOSP.TC ---
Today's Communication/Plan
-
Continue IV Lasix.
Switch to oral Lasix tomorrow.
Possible discharge to SNF, once insurance authorization obtained.
Assessment / Plan
Assessment / Plan
Assessment: :
85yo F with PMHx of Afib s/p Watchman due to intolerance of anticoagulation, CHF, hypothyroidism, GERD, insomnia recent admission to [facility] with abdominal pain, later developed Afib RVR, had CV, had thoracentesis for R pleural effusion
then developed pneumonia and finally was d/c 1 week before admission to . Patient was haing recurrence of Afib with RVR and her lab tester advised her to come to ED. Patient was discharged on 2L home O2 from her previous hospitalization, Due to
loculated R pleural effusion - had thoracentesis on 06/29/25 with 700ml fluid removed that is transudate by lights criteria, pending Cx and Path, patient scheduled for OSTEOPATHIC PHYSICIAN device on 06/30/25
Status post pacemaker
Assessment/plan:
#Subacute respiratory insufficiency
#Afib with RVR
#acute on chronic CHF, systolic
s/p watchman
Lasix, daily weight, follow electrolytes, Cr
Cardiology consult: started digoxin
Echo with 26% EF, moderate-severe MR
Acapella
COnt O2
Obtain records from [place] to [facility] pleural fluid analysis, imaging and afib mgmt
GDMT upon d/c with ACEi, Aldactone, Entresto, Jardiance as tolerated, however might be limited due to low BP
07/01 plan for resynchronization pacemaker with staged AVJ ablation for heart rate control of atrial fibrillation is indicated as per cardiology.
07/02
Status post pacemaker
Cardiology recommended to continue Lasix IV for additional day.
#R pleural effusion with atelectasis
s/p thoracentesis on 06/29/25 - transudate with no preliminary concern for empyema, pending Cx. No indication for Abx since no respiratory symptoms, no fever
gram stain neg for organism, culture and path pending
#Constipation
laxatives
#Transaminitis
minimal, improving.
hepatitis panel neg
#Hypothyroidism
Elevated TSH with also high FT4 - repeat TFT in 3 days showed improved TSH and normalized FT4, then in 3-4 weeks to determine if Synthroid has to be decreased (due to concern for oversupplementation even with elevated TSH, but with RVR) - as
discussed with dust collector operator.
#Mild leukopenia
#Anemia
outpatient follow up with monitoring CBC
check anemia w/u, FOBT if possible
LDH WNL - no concern for hemolysis
#Anxiety
#ASCVD
#Insomnia
Cont home meds
CODE STATUS: DNR
DVT prophylaxis: Lovenox
Diet: cardiac diet
Disposition: IV Lasix
Total time spent on today's encounter was 65 minutes which included time spent in counseling the patient/family regarding diagnosis and treatment plan as listed above, goals of care, and symptom management. Case was discussed with nursing staff,
specialists, and care coordinators/case management. All labs and imaging personally reviewed by me. Remainder the time spent in detailed review of previous records, lab data, imaging, and other medical provider documentation.
Anticipated Discharge: 24 - 48 hours
Subjective/Interval History
-
Date of Service: July 02, 2025
Patient seen and examined at bedside, denies any chest pain or shortness of breath, status post pacemaker placement yesterday.
Objective Data
-
Labs:
Laboratory Results
07/02/25
03:44
WBC 4.6 L
Hgb 10.0 L
Hct 32.0 L
Plt Count 166
Sodium 138
Potassium 3.6
Chloride 100
Carbon Dioxide 34 H
BUN 16
Creatinine 0.7
Glucose 86
Calcium 8.3 L
Vital Signs:
Vital Signs
Temp Pulse Resp BP Pulse Ox
97.9 F 94 20 95/54 93
07/02/25 11:14 07/02/25 12:13 07/02/25 11:14 07/02/25 12:12 07/02/25 12:18
I&O
07/01/25 07/02/25 07/03/25
06:59 06:59 06:59
Intake Total 110 / 110
Output Total 1000 / 1000 250 / 250
Balance -1000 / -1000 -140 / -140
Physical Exam
-
General: Well Developed, Well Nourished, No Apparent Distress and Comfortable
HEENT: Normocephalic, Atraumatic, Moist Mucous Membranes, No Ptosis, PERRLA and Nose Appears Normal
Respiratory: Clear to Auscultation, Non Labored Respirations and Chest Tubes (Pacemaker site is clean)
Cardiac: S1/S2 and Irregular Rhythm
Breast: Deferred by me
GI: Soft, Nontender, Nondistended and Normal Bowel Sounds
Genito-urinary: No Costovertebral Tender
Musculoskeletal: No Clubbing, No Cyanosis and No Edema
Skin: Warm
Neuro: Awake, Alert, Oriented, AO x 3 and No Motor Deficits
Psych: Calm
--- NOTE | 2025-07-02 13:00 | CM ---
Chart reviewed. Patient is independent of ADLS, lives alone in a apartment 3rd floor, elevator access, wears Home O2, current with Jose Mcnulty. PT/OT evaluation recommending SNF. Referral sent to [facility].
[facility] has an available bed, family is agreeable. SNF authorization started with [facility], Ref# [id number], faxed to [phone]. Plan is for the patient to go to [facility] pending insurance authorization and medical stability. CM to
follow
[2025-07-02] MEDS: FERRLECIT 110 MG IV (15:35)
[2025-07-02] MEDS: LOVENOX 40 MG SC (17:45)
--- NOTE | 2025-07-02 18:31 | PTCARENOTE ---
Pt given 75mg toprol this morning, SBP down from 120 to 85, pt c/o fatigue and generally feeling unwell. Vicenta Fonseca BOAT FINISHER notified, dose reduced back to 50mg. Pt also c/o no appetite and stated she was 'not ready to leave'. Pt given tylenol for
incisional discomfort at pacer site with some improvement. Pt OOB to chair and up to bathroom with assist of one, pt walks with a steady gait at a slow pace, fall precautions in place with chair and bed alarm. Pt calls for assistance. Telemetry
shows atrial fib with wide complex, rare paced beats noted.
--- NOTE | 2025-07-03 01:15 | PTCARENOTE ---
Assumed care of the pt @ 1900. Pt is AAOx3 sitting up in chair with family in room. A fib on the monitor with occasional paced beats. VSS Pt ambulated back to bed 1 person assist with rolling walker. Bed and chair alarms in use. Call matthews within
reach.
[2025-07-03 02:55] VITALS: BP 134/66
[2025-07-03 03:05] VITALS: BMI 23.9
[2025-07-03 04:03] LABS: Hematocrit 32.1 % (37.0-47.0); Hemoglobin 10.0 g/dL (12.0-16.0); Mean Corp Hgb Conc. 31.2 g/dL (33.0-37.0); Mean Corpuscular Volume 87.2 fL (81.0-99.0); Platelet Count 168 10^3/uL (130-400); Red Cell Dist. Width 16.6 % (11.5-14.5)
[2025-07-03 04:32] LABS: Blood Urea Nitrogen 16 mg/dl (7-17); Calcium 8.6 mg/dl (8.4-10.2); Carbon Dioxide 33 mmol/L (22-30); Chloride 100 mmol/L (98-107); Estimated Creatinine Clearance 51 ml/min; Glucose 102 mg/dl (70-99); Potassium 3.7 mmol/L (3.5-5.1); Sodium 136 mmol/L (135-145); eGFR > 60.00
[2025-07-03] MEDS: TYLENOL 650 MG PO (05:12)
[2025-07-03] MEDS: SYNTHROID 150 MCG PO (05:13)
[2025-07-03 07:53] VITALS: BP 109/60
--- NOTE | 2025-07-03 08:12 | PN.CDI ---
CDI
- -
CDI:
Physician Documentation Request
Admit Date: 06/25/25 21:13
Dear Doctor Layne,
Please review the following and provide your response in the progress notes.
Clinical Indicators:
Pt admitted with CHF/Rapid Afib
There is potentially conflictint documentation in the record regarding the acuity if CHF.
Documented per cardiology consult, 'Heart failure with newly reduced left ventricular ejection fraction with acute volume overload (previously heart failure with preserved ejection fraction) Continue IV diuretic...Acute HFrEF Cardiomyopathy, new,
EF 25-30%...'
Cardiology note 06/30 ,' -Echo 06/26 with EF newly reduced at 26% ..Acute HFrEF...'
Progress notes 07/01 &07/02,' #acute on chronic CHF, systolic..Echo with 26% EF, moderate-severe MR..'
Due to potentially conflicting documentation please clarify the acuity of the documented CHF:
Acute Systolic CHF
Acute on Chronic Systolic CHF
Other ( please specify)
Use of terms such as suspected, likely, concern for, or probable (associated with a specific diagnosis that is being evaluated, monitored, or treated as if it exists) are acceptable and can be coded in the inpatient setting, when documented at the
time of discharge.
Thank you,
Sadaf Marcos RN
CDI Specialist
[place] [facility]
Please use your independent medical judgment in providing your response.
--- NOTE | 2025-07-03 08:23 | PN.CDI ---
CDI
- -
CDI:
Physician Documentation Request
Admit Date: 06/25/25 21:13
Dear Doctor/ PA,
Please review the following and provide your response in the progress notes.
Clinical Indicators:
Pt admitted with CHF/Rapid Afib
There is potentially conflicting documentation in the record regarding the type of atrial fib.
Cardiology consult, ' Paroxysmal now persistent atrial fibrillation with rapid rates (recent cardioversion and recurred shortly thereafter)...'
Pacemaker report, ' Permanent atrial fibrillation with tachy-aria syndrome (sick sinus syndrome). ..'
Cardiology note 06/29,' Paroxysmal now persistent atrial fibrillation with rapid rates (recent cardioversion and recurred shortly thereafter)...'
Cardiology notes 06/30-07/02, 'Paroxysmal atrial fibrillation...'
Due to potentially conflicting documentation If possible, please provide further specificity regarding atrial fibrillation:
Permanent atrial fibrillation - when a decision has been made to accept the presence of AF and there is no further attempt to restore or maintain sinus rhythm
Paroxysmal atrial fibrillation - terminates spontaneously or with intervention within 7 days of onset
Persistent atrial fibrillation - episodes of continuous AF that last more than 7 days and do not self-terminate
Other - please specify
Use of terms such as suspected, likely, concern for, or probable (associated with a specific diagnosis that is being evaluated, monitored, or treated as if it exists) are acceptable and can be coded in the inpatient setting, when documented at the
time of discharge.
Thank you,
Sadaf Marcos RN
CDI Specialist
[place] [facility]
Please use your independent medical judgment in providing your response.
--- NOTE | 2025-07-03 08:34 | W.PN.CARDCBS ---
Addendum entered and electronically signed by Maurizio Hanson MD 07/03/25 12:48:
I saw and examined the patient.
The POLYMER MATERIALS CONSULTANT or PA's note was reviewed and I agree with the note.
Comment: General: Well developed, well nourished in NAD.
Neck: Supple, no JVD, HJR, carotids +2 B/L, no bruits bilaterally.
Heart: Non displaced PMI, irregular, no murmurs, No S3, S4, no rubs.
Lungs: Scattered rhonchi
Extremities: No clubbing, cyanosis or edema bilaterally.
Neuro: Grossly nonfocal, awake, alert and oriented x3.
Stable cardiology status with good heart rate control of A-fib at present. Might consider AV node ablation as an outpatient. Discussed in detail with patient's daughter by phone on 2 different occasions. For rehab placement. Total visit time 51
minutes including more than half of time spent explaining diagnosis, prognosis, and treatment options.
Original Note:
Today's Communication / Plan
-
Continue Toprol 50mg BID and digoxin 125 mcg daily for rate control.
Continue Aspirin alone for AC due to h/o watchman
Transition to PO lasix 40mg daily
Will start Jardiance 10mg daily at discharge
BMP in 1 week
Follow up IC appt and OV arranged at [facility], will discuss AV node ablation as OP.
Impression / Plan
-
Primary Infantryman: Dr. Craig of [facility] however patient's daughter discussing transitioning care to [facility]
Assessment:
Presented with SOB
Acute HFrEF
Cardiomyopathy, new, EF 25-30%
Persistent atrial fibrillation
prior amiodarone use, stopped 05/2025 admission due to 'concerns for care home toxicity'
Not candidate for dofetilide due to QT prolongation
s/p Watchman 07/2024
s/p Medtronic DC PPM utilizing LBB conduction system capture 07/02/2025
h/o GI bleeding
Chronic HFpEF
Fall 06/22/25 with R knee ecchymoses
Admission to [facility] 05/2025 for CHF s/p R thora (transudative), afib s/p CV with recurrence
HTN
Chronic LBBB
Hypothyroidism, with elevated TFTs
GERD
Anemia
Mild transaminitis
DNR code status
Echo 06/26/2025: EF 26%, mild to moderate LVH, aortic sclerosis, moderate to severe MR, mild TR, PAP 26 mmHg, small pericardial effusion seen
Plan:
-Patient recently admitted to [facility] 05/2025 with heart failure and A-fib. Readmitted at [facility] with acute heart failure and rapid A-fib 06/25/2025.
-Echo 06/26 showed EF newly reduced at 26% as noted above.
-Underwent DC PPM implant 07/01/2025 utilizing LBB conduction system capture for ventricular resynchronization pacing.
-Toprol dose attempted to be uptitrated to 75mg BID, however with this became hypotensive 07/02, so reduced back down to 50mg BID.
-HRs are overall acceptable in persistent atrial fibrillation on Toprol 50mg BID and digoxin 125 mcg daily.
-There is consideration for eventual AV node ablation if needed. Would be planned as OP in 3-4 weeks.
-Continue aspirin alone for anticoagulation given h/o watchman.
-Diuresed this admission with IV lasix 40mg daily. Improved symptomatically w/ no SOB. Off supplemental O2. s/p thoracentesis 06/29 with 700 cc removed.
-Creat stable at 0.7. ProBNP improved to 6250 on repeat check 07/03. OK for transition to PO lasix 40mg daily.
-Check BMP in 1 week.
-Uptitration of GDMT has been limited by hypotension. Continue Toprol 50mg BID. Plan is to start Jardiance 10mg daily at discharge.
-Hypothyroidism noted with TSH 8.52, free T4 1.95. Defer management to primary service.
-Has been arranged for followup incision check appt w/ [facility]. Will also schedule follow up visit to discuss consideration for AV node ablation.
Progress Note - Infantryman
Subjective
Date of Service: July 03, 2025
Feeling well this AM other than dry cough.
Objective
Labs:
07/03/25 03:13
07/03/25 03:13
Labs
Hgb 10.0 g/dL (12.0-16.0) L 07/03/25 03:13
Hct 32.1 % (37.0-47.0) L 07/03/25 03:13
Plt Count 168 10^3/uL (130-400) 07/03/25 03:13
Sodium 136 mmol/L (135-145) 07/03/25 03:13
Potassium 3.7 mmol/L (3.5-5.1) 07/03/25 03:13
BUN 16 mg/dl (7-17) 07/03/25 03:13
Creatinine 0.7 mg/dL (0.6-1.0) 07/03/25 03:13
Glucose 102 mg/dl (70-99) H 07/03/25 03:13
Digoxin 0.8 ng/ml (0.8-2.0) 07/01/25 04:47
Vital Signs and I&O:
Vital Signs
Temp Pulse Resp BP Pulse Ox
98.0 F 103 18 109/60 95
07/03/25 07:54 07/03/25 08:00 07/03/25 07:54 07/03/25 07:53 07/03/25 07:54
Vital Signs
Temp Pulse Resp BP Pulse Ox
98.0 F 103 18 109/60 95
07/03/25 07:54 07/03/25 08:00 07/03/25 07:54 07/03/25 07:53 07/03/25 07:54
Intake & Output
07/01/25 07/02/25 07/03/25 07/04/25
06:59 06:59 06:59 06:59
Intake Total 110 / 110 650 / 650
Output Total 1000 / 1000 250 / 250
Balance -1000 / -1000 -140 / -140 650 / 650
Physical Exam
Physical Exam
GEN: No distress, awake, oriented x3. sitting in chair.
HEENT: supple, anicteric, mmm
LUNGS: CTA b/l, no wheezes
CV: Irreg, S1/S2, 1/6 syst LSB
EXT: No cyanosis, clubbing, or edema
NEURO: Gross non-focal
SKIN: Warm, pink, dry. No rash
[2025-07-03] MEDS: TOPROL XL 50 MG PO (09:31)
[2025-07-03] MEDS: ASPIR LOW (ENTERIC COATED) 81 MG PO (09:31)
[2025-07-03] MEDS: PROTONIX 40 MG PO (09:31)
[2025-07-03] MEDS: ZOLOFT 100 MG PO (09:31)
[2025-07-03] MEDS: LASIX IV (09:32)
[2025-07-03 10:12] VITALS: BP 99/64
[2025-07-03 10:14] VITALS: BP 98/69
[2025-07-03 10:22] VITALS: BP 98/69; BP 99/64
--- NOTE | 2025-07-03 10:42 | W.PN.HOSP.TC ---
Today's Communication/Plan
-
Discharge to rehab
Assessment / Plan
Assessment / Plan
Assessment: :
85yo F with PMHx of Afib s/p Watchman due to intolerance of anticoagulation, CHF, hypothyroidism, GERD, insomnia recent admission to [facility] with abdominal pain, later developed Afib RVR, had CV, had thoracentesis for R pleural effusion
then developed pneumonia and finally was d/c 1 week before admission to . Patient was haing recurrence of Afib with RVR and her alumina refinery operator advised her to come to ED. Patient was discharged on 2L home O2 from her previous hospitalization, Due to
loculated R pleural effusion - had thoracentesis on 06/29/25 with 700ml fluid removed that is transudate by lights criteria, pending Cx and Path, patient scheduled for SURVEY RESEARCH MANAGER device on 06/30/25
Status post pacemaker
Patient was given IV Lasix which switched to oral Lasix before discharge.
Assessment/plan:
#Subacute respiratory insufficiency
#Afib with RVR
#acute on chronic CHF, systolic
s/p watchman
Lasix, daily weight, follow electrolytes, Cr
Cardiology consult: started digoxin
Echo with 26% EF, moderate-severe MR
Acapella
COnt O2
Obtain records from [place] to [facility] pleural fluid analysis, imaging and afib mgmt
GDMT upon d/c with ACEi, Aldactone, Entresto, Jardiance as tolerated, however might be limited due to low BP
07/01 plan for resynchronization pacemaker with staged AVJ ablation for heart rate control of atrial fibrillation is indicated as per cardiology.
07/02
Status post pacemaker
Cardiology recommended to continue Lasix IV for additional day.
07/03
Cleared for discharge by cardiology-repeat BMP after 1 week
#R pleural effusion with atelectasis
s/p thoracentesis on 06/29/25 - transudate with no preliminary concern for empyema, pending Cx. No indication for Abx since no respiratory symptoms, no fever
gram stain neg for organism, culture and path pending
#Constipation
laxatives
#Transaminitis
minimal, improving.
hepatitis panel neg
#Hypothyroidism
Elevated TSH with also high FT4 - repeat TFT in 3 days showed improved TSH and normalized FT4, then in 3-4 weeks to determine if Synthroid has to be decreased (due to concern for oversupplementation even with elevated TSH, but with RVR) - as
discussed with advertising designer.
#Mild leukopenia
#Anemia
outpatient follow up with monitoring CBC
check anemia w/u, FOBT if possible
LDH WNL - no concern for hemolysis
#Anxiety
#ASCVD
#Insomnia
Cont home meds
CODE STATUS: DNR
DVT prophylaxis: Lovenox
Diet: cardiac diet
Disposition: Discharge to rehab
Total time spent on today's encounter was 65 minutes which included time spent in counseling the patient/family regarding diagnosis and treatment plan as listed above, goals of care, and symptom management. Case was discussed with nursing staff,
specialists, and care coordinators/case management. All labs and imaging personally reviewed by me. Remainder the time spent in detailed review of previous records, lab data, imaging, and other medical provider documentation.
Anticipated Discharge: Today
Subjective/Interval History
-
Date of Service: July 03, 2025
Patient seen and examined at bedside, denies any chest pain or shortness of breath, no abdominal pain, no nausea, no vomiting, no diarrhea or constipation.
Objective Data
-
Labs:
Laboratory Results
07/03/25
03:13
WBC 4.4 L
Hgb 10.0 L
Hct 32.1 L
Plt Count 168
Sodium 136
Potassium 3.7
Chloride 100
Carbon Dioxide 33 H
BUN 16
Creatinine 0.7
Glucose 102 H
Calcium 8.6
Vital Signs:
Vital Signs
Temp Pulse Resp BP Pulse Ox
98.0 F 109 18 109/60 95
07/03/25 07:54 07/03/25 09:31 07/03/25 07:54 07/03/25 09:31 07/03/25 09:35
I&O
07/02/25 07/03/25 07/04/25
06:59 06:59 06:59
Intake Total 110 / 110 650 / 650
Output Total 250 / 250
Balance -140 / -140 650 / 650
Physical Exam
-
General: Well Developed, Well Nourished, No Apparent Distress and Comfortable
HEENT: Normocephalic, Atraumatic, Moist Mucous Membranes, No Ptosis, PERRLA and Nose Appears Normal
Respiratory: Clear to Auscultation, Non Labored Respirations and Chest Tubes (Pacemaker site is clean)
Cardiac: S1/S2 and Irregular Rhythm
Breast: Deferred by me
GI: Soft, Nontender, Nondistended and Normal Bowel Sounds
Genito-urinary: No Costovertebral Tender
Musculoskeletal: No Clubbing, No Cyanosis and No Edema
Skin: Warm
Neuro: Awake, Alert, Oriented, AO x 3 and No Motor Deficits
Psych: Calm
Data Reviewed
-
Diagnostic Radiology: Image personally visualized and interpreted and Report Reviewed by me
CT Scan: Image personally visualized and interpreted and Report Reviewed by me
Ultrasound: Image personally visualized and interpreted and Report Reviewed by me
MRI: Image personally visualized and interpreted and Report Reviewed by me
Medical Tests (Nuc Med, Echo etc): Image personally visualized and interpreted and Report Reviewed by me
Labs: Labs Reviewed by me
Old Records: Reviewed
--- NOTE | 2025-07-03 10:49 | W.DCSUMMARY ---
Addendum entered and electronically signed by Tabby Tillman MD 07/03/25 12:31:
Acute Systolic CHF
Original Note:
Discharge Summary
Discharge Data
Date of Admission: 06/25/25
Date of Discharge: 07/03/25
Total time spent discharging patient (in min): 40
-
Pending Results: No
Hospital Course
Hospital course
85yo F with PMHx of Afib s/p Watchman due to intolerance of anticoagulation, CHF, hypothyroidism, GERD, insomnia recent admission to [facility] with abdominal pain, later developed Afib RVR, had CV, had thoracentesis for R pleural effusion
then developed pneumonia and finally was d/c 1 week before admission to . Patient was haing recurrence of Afib with RVR and her bleach supervisor advised her to come to ED. Patient was discharged on 2L home O2 from her previous hospitalization, Due to
loculated R pleural effusion - had thoracentesis on 06/29/25 with 700ml fluid removed that is transudate by lights criteria, pending Cx and Path, patient scheduled for MANNEQUIN MOUNTER device on 06/30/25
Status post pacemaker
Patient was given IV Lasix which switched to oral Lasix before discharge.
Will be discharged on oral digoxin 125 mcg daily.
Check BMP/digoxin level after 1 week.
During hospitalization patient was treated from the following
#Subacute respiratory failure
#Afib with RVR
#acute on chronic CHF, systolic
s/p watchman
Lasix, daily weight, follow electrolytes, Cr
Cardiology consult: started digoxin
Echo with 26% EF, moderate-severe MR
Acapella
COnt O2
Obtain records from [place] to [facility] pleural fluid analysis, imaging and afib mgmt
GDMT upon d/c with ACEi, Aldactone, Entresto, Jardiance as tolerated, however might be limited due to low BP
07/01 plan for resynchronization pacemaker with staged AVJ ablation for heart rate control of atrial fibrillation is indicated as per cardiology.
07/02
Status post pacemaker
Cardiology recommended to continue Lasix IV for additional day.
07/03
Cleared for discharge by cardiology-repeat BMP after 1 week
Will be discharged on oral digoxin 125 mcg daily.
Digoxin level after 1 week.
#R pleural effusion with atelectasis
s/p thoracentesis on 06/29/25 - transudate with no preliminary concern for empyema, pending Cx. No indication for Abx since no respiratory symptoms, no fever
gram stain neg for organism, culture and path pending
#Constipation
laxatives
#Transaminitis
minimal, improving.
hepatitis panel neg
#Hypothyroidism
Elevated TSH with also high FT4 - repeat TFT in 3 days showed improved TSH and normalized FT4, then in 3-4 weeks to determine if Synthroid has to be decreased (due to concern for oversupplementation even with elevated TSH, but with RVR) - as
discussed with supplier quality.
#Mild leukopenia
#Anemia
outpatient follow up with monitoring CBC
check anemia w/u, FOBT if possible
LDH WNL - no concern for hemolysis
#Anxiety
#ASCVD
#Insomnia
Cont home meds
CODE STATUS: DNR
DVT prophylaxis: Lovenox
Diet: cardiac diet
Disposition: Discharge to rehab
Total time spent on today's encounter was 40 minutes which included time spent in counseling the patient/family regarding diagnosis and treatment plan as listed above, goals of care, and symptom management. Case was discussed with nursing staff,
specialists, and care coordinators/case management. All labs and imaging personally reviewed by me. Remainder the time spent in detailed review of previous records, lab data, imaging, and other medical provider documentation.
Anticipated Discharge: Today
Discharge Plan
-
Patient Disposition: Fdc/SNF
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
Subacute respiratory failure
Afib with RVR
Acute on chronic CHF, systolic
Diet: As tolerated and 2 Gram Sodium
Activity: With assistance and As tolerated
Driving Restrictions: No driving for 1 week
Blood Work: BMP after 1 week-digoxin level after 1 week.
Other Services: PT and OT
Stand Alone Forms: [facility] - Implanted Device
Referrals:
[facility] [Other]
Referral Note:
[facility] [Provider Group] - 07/08/25 1:00 pm
Referral Note: Post device incision check appointment
[facility] [Outside]
Loli Shipley CRNP [Specified Professional Personl, Cardiology] - 07/30/25 2:20 pm
Referral Note: You have a follow up visit with Dr. Robert Camacho's REFERRAL CLERK, Loli, on a day Dr. Jones is in the office. Please call with questions.
Kyra Marina DO [Family Provider, Family Practice]
Prescriptions:
New
Jardiance 10 mg tablet
10 mg PO DAILY Qty: 30 11RF
digoxin 125 mcg (0.125 mg) Tablet
125 mcg PO NOON Qty: 30 0RF
Continued
furosemide [Lasix] 40 mg Tablet
40 mg PO DAILY
trazodone 50 mg Tablet
50 mg PO HSPRN PRN (Reason: sleep)
sertraline 100 mg Tablet
100 mg PO DAILY
therapeutic multivitamin Tablet
1 tab PO DAILY
aspirin 81 mg Tablet,Delayed Release (Dr/Ec)
81 mg PO DAILY
calcium carbonate [Calcium 600] 600 mg calcium (1,500 mg) Tablet
600 mg PO DAILY
pantoprazole [Protonix] 40 mg Tablet,Delayed Release (Dr/Ec)
40 mg PO BID
levothyroxine [Synthroid] 150 mcg Tablet
150 mcg PO DAILY
alum-mag hydroxide-simeth 200-200-20 mg/5 mL Suspension
15 ml PO AC
PreserVision AREDS 2,148 mcg-113 mg-45 mg-17.4mg Tablet
1 tab PO BID
Changed
metoprolol succinate [Toprol XL] 50 mg Tablet Extended Release 24 Hr
50 mg PO BID Qty: 0 0RF
Discharge Orders:
Discharge Patient (As Directed); Ordered 07/03/25
Ordered By: Tabby Tillman
Care Plan Goals
Care Plan Goals:
Problem: Readiness for enhanced knowledge related to diagnosis and treatment plan
Goal: Understand your diagnosis and treatment plan needs, including medications if applicable.
Instructions: Know your diagnosis, underlying causes and treatment plan options, including medications if applicable. Consult with your health care team to learn about your diagnosis and treatment plan, including medications if applicable.
Discharge Date and Time
Print Language: BENGALI
[2025-07-03 11:31] VITALS: BP 101/73
[2025-07-03] MEDS: LANOXIN 125 MCG PO (11:35)
--- NOTE | 2025-07-03 12:49 | CM ---
Chart reviewed. Patient is independent of ADLS, lives alone in a 3rd floor apartment, elevator access, ambulates with a RW, wears Home O2 2l. We were able to wean her off her O2. Patient's daughter called this morning requesting to find if bed
was available at [facility] since her mother never discharged yesterday. Bed is available. Insurance authorization obtained, ref# [id number], Approved 07/03-07/07, NRD 07/07. Plan is for the patient to go to [facility].
--- NOTE | 2025-07-03 13:05 | PTCARENOTE ---
Pt seen by and Vicenta Fonseca, TAMAR. Telemetry and IV device removed. Discharge instructions reviewed with pt and her dtr, pacer book and ID card given to them. Good understanding verbalized. Report called to Irais at [facility]. Pt left
with her dtr via wheelchair with all relevant paperwork.
== END 2025-07-03 13:10 | DRG 242 ==
LOC: IVU 21:13
PROVIDERS: Emergency Medicine; Internal Medicine; Internal Medicine Cardiovascular Disease; Nurse Practitioner; Radiology Vascular & Interventional Radiology; ADMITTING PHYSICIAN Hospitalist; ATTENDING PHYSICIAN General Practice; EMERGENCY PHYSICIAN Emergency Medicine; FAMILY PHYSICIAN Family Medicine; OTHER PHYSICIAN Internal Medicine Cardiovascular Disease
PROC: 0W993ZZ Drainage of Right Pleural Cavity, Percutaneous Approach (ICD-10-PCS; 2025-06-29)
PROC: 02HK3JZ Insertion of Pacemaker Lead into Right Ventricle, Percutaneous Approach (ICD-10-PCS; 2025-07-01)
PROC: 0JH604Z Insertion of Pacemaker, Single Chamber into Chest Subcutaneous Tissue and Fascia, Open Approach (ICD-10-PCS; 2025-07-01)
DX: I49.5 Sick sinus syndrome (principal); I50.43 Acute on chronic combined systolic (congestive) and diastolic (congestive) heart failure; J96.90 Respiratory failure, unspecified, unspecified whether with hypoxia or hypercapnia; I48.21 Permanent atrial fibrillation; I31.39 Other pericardial effusion (noninflammatory); J98.11 Atelectasis; I11.0 Hypertensive heart disease with heart failure; Z79.890 Hormone replacement therapy; Z79.899 Other long term (current) drug therapy; E03.9 Hypothyroidism, unspecified; K21.9 Gastro-esophageal reflux disease without esophagitis; Z90.710 Acquired absence of both cervix and uterus; Z79.82 Long term (current) use of aspirin; Z79.01 Long term (current) use of anticoagulants; Z95.818 Presence of other cardiac implants and grafts; K59.00 Constipation, unspecified; Z66 Do not resuscitate; D64.9 Anemia, unspecified; D72.819 Decreased white blood cell count, unspecified; E87.5 Hyperkalemia; F32.A Depression, unspecified; F41.9 Anxiety disorder, unspecified; G47.00 Insomnia, unspecified; I25.10 Atherosclerotic heart disease of native coronary artery without angina pectoris; I42.9 Cardiomyopathy, unspecified; I44.7 Left bundle-branch block, unspecified
CPT/HCPCS: 32555; 33207; 71045; 71046; 76700; 80048; 80053; 80061; 80162; 81003; 82150; 82550; 82607; 82728; 82746; 83036; 83540; 83550; 83615; 83735; 83880; 83986; 84439; 84443; 84484; 85025; 85027; 85045; 86704; 86706; 86803; 87015; 87070; 87205; 87340; 88112; 88305; 89051; 93005; 93306; 93975; 96374; 96375; 97110; 97116; 97162; 97166; 97530; 97535; 99291; C1769; C1786; C1887; C1898; J1160; J2916